=== PATIENT | female | born 1955 | race Caucasian/White ===

== ENCOUNTER → 2017-02-28 | Outpatient (CLI) | payer OTHER ==
--- NOTE | 2017-02-28 15:21 | WWHP ---
[facility] - HISTORY AND PHYSICAL DATE OF DICTATION: 02/28/2017 CHIEF COMPLAINT: The patient is here for her routine gynecologic exam. HPI: This is a 61-year-old G3, P2 0-1-2 with an LMP of 2006. The patient is without gynecologic complaints and denies any postmenopausal bleeding. She is here to establish with this office. It has been about 1 year since her last pelvic exam. PAST MEDICAL HISTORY: Asthma, atrial tachycardia, mitral valve prolapse, Servin's esophagus, hypothyroidism, and chronic Kurtis Bar virus and history of Lyme's disease. MEDICATIONS: 1. Flecainide 100 mg b.i.d. 2. Symbicort 2 puffs b.i.d. 3. Omeprazole 40 mg daily. 4. Paxil 20 mg daily. 5. Tenormin 25 mg daily. 6. Naproxen 500 mg b.i.d. 7. Levothyroxine 100 mcg daily. 8. Singulair 10 mg daily. 9. Crestor 10 mg daily. ALLERGIES: She does avoid stimulants because it makes her heart race. PAST SURGICAL HISTORY: Tonsillectomy with adenoidectomy as a child, colonoscopy in 2014, and this was her third one, cardiac ablations in 1993 and 1994, right knee surgery 2006, breast reduction surgery in 2009. PAST OB HISTORY: Two vaginal deliveries and one voluntary termination of . 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 She has no other history of STDs. SOCIAL HISTORY: She quit smoking in 1998, has about 6 alcohol containing drinks per month and denies drug use. 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 She is . FAMILY HISTORY: Father had bladder and oral cancer. Mother had breast cancer. Also, she has aunts and cousins and a grandmother who had breast cancer. She has a grandmother who had diabetes. REVIEW OF SYSTEMS: She has lost about 12 pounds with diet. She denies respiratory or cardiac problems. GI: Some heartburn which she relates to her esophageal problems. PHYSICAL EXAM: Blood pressure 127/61, height 5 feet 7 inches, weight 198 pounds. Temperature 97.9, pulse 68. This is a well-developed, well-nourished, white female, who is alert and oriented x3, in no acute distress. HEENT is within normal limits. NECK: Supple without mass or thyromegaly. Chest and lungs: Clear to auscultation. HEART: Regular rate and rhythm. Breasts are without mass or discharge and are consistent with previous breast reduction surgery. Axillary exam is negative for adenopathy. Back negative for CVA tenderness. ABDOMEN: Soft, nontender, without palpable masses. Pelvic exam: External genitalia reveals mild atrophy without lesions. Cervix and vagina reveals mild atrophy without lesions. There is no evidence of prolapse. The uterus is mid position nongravid size and nontender. There are no palpable adnexal masses or tenderness. Rectovaginal exam is negative for mass or tenderness and is negative for occult blood. Extremities nontender. IMPRESSION: 61-year-old menopausal female with normal gynecologic exam. PLAN: 1. Pap smear was performed. 2. Self-breast examination was discussed. 3. Mammogram will be due after 04/04/2017 and an order slip was given to the patient for this. 4. Osteoporosis prevention was discussed. 5. She will return in 1 year. MMODL / IJN: [id number] /
== END ==
LOC: WWCWWP 12:34
PROVIDERS: ATTEND Obstetrics & Gynecology
DX: Z01.419 Encounter for gynecological examination (general) (routine) without abnormal findings (principal)

== ENCOUNTER → 2017-04-10 | Outpatient (CLI) | payer BC, OTHER ==
--- NOTE | 2017-04-11 11:05 | MM ---
Reason for exam: screening (asymptomatic). Last mammogram was performed 1 year ago. History: Patient is postmenopausal. Family history of breast cancer in maternal aunt, premenopausal breast cancer in mother at age 50, and breast cancer in maternal grandmother at age 70. September 2009. Took hormonal contraceptives for 12 years beginning at age 14. Took estrogen for 6 months beginning at age 39. Physical Findings: A clinical breast exam by your physician is recommended on an annual basis and results should be correlated with mammographic findings. MG Screening Mammo w CAD Bilateral CC and MLO view(s) were taken. Prior study comparison: April 04, 2016, bilateral MG screening mammo w CAD. April 03, 2015, bilateral MG screening mammo w CAD. There are scattered fibroglandular densities. Stable benign calcifications. There is no discrete abnormality. No significant changes when compared with prior studies. ASSESSMENT: Benign, BI-RAD 2 RECOMMENDATION: Routine screening mammogram of both breasts in 1 year.
== END | disposition home or self-care (01) ==
LOC: RADMAMWWP 11:10
PROVIDERS: ATTEND Obstetrics & Gynecology
DX: Z12.31 Encounter for screening mammogram for malignant neoplasm of breast (principal); Z98.890 Other specified postprocedural states

== ENCOUNTER 2017-10-18 09:31 | Day surgery (SDC) | payer OTHER ==
[2017-10-17 12:15] VITALS: BMI 31.3
[~2017-10-18 09:31] MED LIST: LACTATED RINGERS 1,000 ML IV SCH; LIDOCAINE 1% 20 ML VIAL (10MG/ML) FOR IV START INTRADERMA PRN
[2017-10-18] MEDS ORDERED: LACTATED RINGERS 1,000 ML IV ONE (10:01)
[2017-10-18 10:20] VITALS: RESP 18; TEMP 98.1
[2017-10-18] MEDS ORDERED: LIDOCAINE 1% INJ 10MG/ML (20 ML MDV) ONE (10:43)
[2017-10-18] MEDS ORDERED: PROPOFOL 10 MG/ML 20 ML VIAL IV ONE (10:43)
--- NOTE | 2017-10-18 10:51 | P.PCN ---
Date of Procedure: 10/18/17 Procedure(s) Performed: BRIEF HISTORY: Patient is a 62-year-old, pleasant, male, scheduled for an upper endoscopy as a part of surveillance of long-standing history of gastroesophageal reflux disease and Servin's esophagus.. PROCEDURE PERFORMED: Esophagogastroduodenoscopy with biopsy. PREOPERATIVE DIAGNOSIS: Long-standing history of GERD and Servin's esophagus. IV sedation per anesthesia. PROCEDURE: After informed consent was obtained, the patient was brought into the endoscopy unit. IV sedation was administered by Anesthesia under continuous monitoring. Initially the Olympus GIF-140 video endoscope was inserted into the mouth. Esophagus intubated without any difficulty. It was gradually advanced into the stomach and duodenum and carefully examined. The bulb and the second part of the duodenum appeared normal. The scope at this time was withdrawn to the stomach, adequately insufflated with air, and upon careful examination, mucosa of the antrum, body, cardia and the fundus appeared normal. Multiple small gastric polyps identified in the body the stomach which were biopsied. The scope was then withdrawn into the esophagus. The GE junction was located at 38 cm from the incisors. Small hiatal hernia noted. There was a 3 mm island of Servin's appearing mucosa just proximal to the GE junction and this was biopsied. The esophagus appeared normal. There were no erosions or ulcerations seen and the patient tolerated the procedure well. IMPRESSION: 1. Small gastric polyps. 2. Short segment Servin's esophagus and a small hiatal hernia. RECOMMENDATIONS: The findings of this examination were discussed with the patient as well as her family. She was advised to follow with the biopsy results and have a repeat upper endoscopy in 3 years. She will continue with Nexium 40 mg daily and follow antireflux measures
[2017-10-18 11:15] VITALS: BP 128/75; PULSE 67
== END 2017-10-18 11:46 | disposition home or self-care (01) ==
LOC: ORWHC2ENDO 09:31
PROVIDERS: ATTEND Internal Medicine Gastroenterology
DX: K31.7 Polyp of stomach and duodenum (principal); K21.0 Gastro-esophageal reflux disease with esophagitis; K22.70 Barrett's esophagus without dysplasia; K44.9 Diaphragmatic hernia without obstruction or gangrene; J45.909 Unspecified asthma, uncomplicated; Z87.891 Personal history of nicotine dependence; Z88.8 Allergy status to other drugs, medicaments and biological substances; Z79.82 Long term (current) use of aspirin; Z79.899 Other long term (current) drug therapy
CPT/HCPCS: 88305; 43239; J2001; J2704

== ENCOUNTER 2017-12-27 10:58 | Day surgery (SDC) | payer OTHER ==
[2017-12-22 16:38] VITALS: BMI 31.3
[2017-12-27 11:32] VITALS: TEMP 97.8
[2017-12-27] MEDS ORDERED: LIDOCAINE 1% INJ 10MG/ML (20 ML MDV) ONE (12:44)
[2017-12-27] MEDS ORDERED: PROPOFOL 10 MG/ML 20 ML VIAL IV ONE (12:44)
--- NOTE | 2017-12-27 12:59 | P.PCN ---
Date of Procedure: 12/27/17 Procedure(s) Performed: BRIEF HISTORY: Patient is a 62-year-old pleasant white female scheduled for an elective colonoscopy as a part of evaluation of positive stool for cologuard. PROCEDURE PERFORMED: Colonoscopy. PREOPERATIVE DIAGNOSIS: Positive stool for cologuard. IV sedation per Anesthesia. PROCEDURE: After informed consent was obtained, the patient, was brought into the endoscopy unit. IV sedation was administered by Anesthesia under continuous monitoring. Digital rectal examination was normal. Initially the Olympus CF- 160 flexible video colonoscope was then inserted in the rectum, gradually advanced into the cecum without any difficulty. Careful examination was performed as the scope was gradually being withdrawn. Ileocecal valve and the appendiceal orifice were visualized and appeared normal. Prep was excellent. Mucosa of the cecum, ascending colon, transverse colon, descending colon, sigmoid colon, and rectum appeared normal. Retroflexion was performed in the rectum and no lesions were seen. The patient tolerated the procedure well. IMPRESSION: Normal-appearing colon from rectum to cecum with no evidence of colorectal neoplasia. RECOMMENDATIONS: Findings of this examination were discussed with the patient as well as a family. She was advised to have a repeat colonoscopy in 10 years.
[2017-12-27 13:02] VITALS: PULSE 80
[2017-12-27 13:18] VITALS: BP 163/70; RESP 18
== END 2017-12-27 13:35 | disposition home or self-care (01) ==
LOC: ORWHC2ENDO 10:58
PROVIDERS: ATTEND Internal Medicine Gastroenterology
DX: Z12.11 Encounter for screening for malignant neoplasm of colon (principal); I10 Essential (primary) hypertension; E78.5 Hyperlipidemia, unspecified; J45.909 Unspecified asthma, uncomplicated; K21.9 Gastro-esophageal reflux disease without esophagitis; I47.1 Supraventricular tachycardia; Z88.8 Allergy status to other drugs, medicaments and biological substances; Z79.899 Other long term (current) drug therapy
CPT/HCPCS: 45378; J2001; J2704

== ENCOUNTER → 2018-04-11 | Outpatient (CLI) | payer OTHER ==
[2018-04-11 11:46] VITALS: BP 144/65; PULSE 79; TEMP 96.3; BMI 32.4
--- NOTE | 2018-04-11 12:37 | P.HPOB ---
History of Present Illness H&P Date: 04/11/18 Chief Complaint: The patient is here for her routine gynecologic exam and mammogram. This is a 62-year-old with an LMP of 2006. The patient is without gynecologic complaints and denies any postmenopausal bleeding. Review of Systems The patient has gained 9 pounds over the last year. She denies respiratory, cardiac, or G.I. problems. Past Medical History Past Medical History: Asthma, GERD/Reflux, Hearing Disorder / Deafness, Hyperlipidemia, Osteoarthritis (OA), Skin Disorder, Thyroid Disorder Additional Past Medical History / Comment(s): hx of mycoplasma pneumonie., atrial tachycardia, lymes disease diagnosed december 2012 (bit december 2011), degenerative disk disease, cameron's esphagus, hx of Kurtis Heard, mitral valve prolapse, back & right hip pain (received physical therapy for her hip pain)., hx polyps, stool tested positive for blood. , Deaf right ear. 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 History of Any Multi-Drug Resistant Organisms: None Reported Past Surgical History: Breast Surgery, Cardiac Ablation, Heart Catheterization, Orthopedic Surgery, Tonsillectomy, Tubal Ligation Additional Past Surgical History / Comment(s): breast reduction, D&C, EGD, colonosopy 2018 (2nd), rt knee surgery. Past Anesthesia/Blood Transfusion Reactions: Motion Sickness Additional Past Anesthesia/Blood Transfusion Reaction / Comment(s): has needed xopenex treatment after surgery in the past. Past Psychological History: Anxiety Additional Psychological History / Comment(s): PANIC ATTACK Smoking Status: Former smoker (Quit 1998) Past Alcohol Use History: Occasional (4 per month) Additional Past Alcohol Use History / Comment(s): STARTED SMOKING AT AGE 17 QUIT MAR 1999 SMOKED 1 1/2PPD Past Drug Use History: None Reported Additional History: She is . 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 - Past Family History Father Family Medical History: Cancer (Bladder and oral cancer.) Mother Family Medical History: Cancer (Breast cancer) Additional Family Medical History / Comment(s): She also has aunts, cousins and a grandmother had breast cancer. Medications and Allergies Home Medications Medication Instructions Recorded Confirmed Type ALPRAZolam [Xanax] 1.5 - 2 mg PO HS 10/14/14 04/11/18 History Aspirin 81 mg PO DAILY 10/14/14 04/11/18 History Atenolol [Tenormin] 25 mg PO HS 10/14/14 04/11/18 History Esomeprazole Magnesium [NexIUM] 40 mg PO DAILY 10/14/14 04/11/18 History Flecainide [Tambocor] 50 mg PO Q12HR 10/14/14 04/11/18 History Glucosamine/Chondr Liu A Sod [Osteo 1 each PO BID 10/14/14 04/11/18 History Bi-Flex Caplet] Levothyroxine Sodium [Synthroid] 100 mcg PO DAILY 10/14/14 04/11/18 History Montelukast [Singulair] 10 mg PO DAILY 10/14/14 04/11/18 History Multivitamins, Thera [Theragran] 1 each PO DAILY 10/14/14 04/11/18 History Naproxen 500 mg PO BID 10/14/14 04/11/18 History PARoxetine HCL [Paxil] 20 mg PO DAILY 10/14/14 04/11/18 History Vitamin B Complex 1 each PO DAILY 10/14/14 04/11/18 History Budesonide-Formot 160-4.5 Mcg 2 puff INHALATION BID 10/17/17 04/11/18 History [Symbicort 160-4.5 Mcg Inhaler] Cyanocobalamin (Vitamin B-12) 1,000 mcg PO DAILY 10/17/17 04/11/18 History [Vitamin B-12] Levalbuterol HCl [Xopenex] 1.25 mg INHALATION TID PRN 10/17/17 04/11/18 History Levalbuterol Hfa Inhaler [Xopenex 2 puff INHALATION Q4H PRN 10/17/17 04/11/18 History Hfa Inhaler] Rosuvastatin Calcium [Crestor] 20 mg PO DAILY 10/17/17 04/11/18 History Chaparal Supplement 1,000 mg PO HS 12/22/17 04/11/18 History Monolaurin Supplement 1,200 mg PO DAILY 12/22/17 04/11/18 History Triamcinolone 0.1% Cream [Kenalog 1 applicatio TOPICAL BID PRN 12/22/17 History 0.1% Cream] Allergies Allergy/AdvReac Type Severity Reaction Status Date / Time albuterol AdvReac Rapid Verified 04/11/18 11:31 Heart Rate stimulant medications Allergy Rapid Uncoded 04/11/18 11:31 Heart Rate Exam Vital Signs Temp Pulse BP 04/11/18 11:41 96.3 F L 79 144/65 Intake and Output 04/10/18 04/11/18 04/11/18 22:59 06:59 14:59 Other: Weight 93.894 kg Height 5'7", weight 207 pounds, BMI 32.4. This is a well-developed well-nourished white female who is alert and oriented times 3 in no acute distress. HEENT: Within normal limits. NECK: Supple without mass or thyromegaly. CHEST AND LUNGS: Clear to auscultation. HEART: Regular rate and rhythm. BREASTS: Are without mass or discharge. AXILLARY EXAM: Negative for adenopathy. BACK: Negative for CVA tenderness. ABDOMEN: Soft, nontender, without palpable masses. PELVIC EXAM: Normal external genitalia with mild atrophy. Cervix and vagina appear normal with mild atrophy. There is no unusual discharge. There is no evidence of prolapse. The uterus is midposition, nongravid size and nontender. There are no palpable adnexal masses or tenderness. RECTAL EXAM: rectovaginal exam is negative for mass or tenderness and is negative for occult blood. EXTREMITIES: Nontender. IMPRESSION: 1. 62-year-old menopausal female with normal gynecologic exam. PLAN: 1. Pap smear was deferred since she had a normal one last year. 2. Self breast awareness was discussed with the patient. 3. Screening mammogram will be done today. 4. Osteoporosis prevention was discussed. I have stressed the importance of adequate calcium, vitamin D and regular exercise. Recommended amounts of calcium and vitamin D were also discussed. We will plan on repeating bone density testing again in approximately 2019. 5. She will return in one year.
--- NOTE | 2018-04-13 12:32 | MM ---
Reason for exam: screening (asymptomatic). Last mammogram was performed 1 year ago. History: Patient is postmenopausal. Family history of breast cancer in maternal aunt, premenopausal breast cancer in mother at age 50, breast cancer in maternal grandmother at age 70, and breast cancer in cousin. September 2009. Took hormonal contraceptives for 12 years beginning at age 14. Took estrogen for 6 months beginning at age 39. Physical Findings: A clinical breast exam by your physician is recommended on an annual basis and results should be correlated with mammographic findings. MG Screening Mammo w CAD Bilateral CC and MLO view(s) were taken. Prior study comparison: April 10, 2017, bilateral MG screening mammo w CAD. April 04, 2016, bilateral MG screening mammo w CAD. There are scattered fibroglandular densities. Benign appearing bilateral calcifications. No suspicious abnormality. No significant changes when compared with prior studies. ASSESSMENT: Benign, BI-RAD 2 RECOMMENDATION: Routine screening mammogram of both breasts in 1 year.
== END ==
LOC: WWCWWP 11:07
PROVIDERS: ATTEND Obstetrics & Gynecology
DX: Z12.31 Encounter for screening mammogram for malignant neoplasm of breast (principal)
CPT/HCPCS: 77067

== ENCOUNTER → 2018-08-13 | Outpatient (CLI) | payer OTHER ==
--- NOTE | 2018-08-14 07:45 | XR ---
EXAMINATION TYPE: XR chest 2V DATE OF EXAM: 08/13/2018 COMPARISON: 05/06/2016 TECHNIQUE: PA and lateral views submitted. HISTORY: Pneumonia FINDINGS: There are subsegmental changes in the right perihilar region. No pleural effusion or pneumothorax. He art size normal. No overt failure. IMPRESSION: 1. Right lower lobe subsegmental atelectasis or infiltrate correlate clinically.
== END | disposition home or self-care (01) ==
LOC: RADXRMAIN 17:28
PROVIDERS: ATTEND Internal Medicine Infectious Disease
DX: J18.9 Pneumonia, unspecified organism (principal)
CPT/HCPCS: 71046

== ENCOUNTER 2019-04-10 14:36 | Emergency (ER) | payer OTHER ==
[2019-04-10 14:41] VITALS: TEMP 98.4
[2019-04-10] MEDS ORDERED: SODIUM CHLORIDE 0.9% 1,000 ML IV STA (15:04)
[2019-04-10] MEDS ORDERED: KETOROLAC 30 MG/ML 1 ML VIAL IVP STA (15:04)
[2019-04-10] MEDS ORDERED: ONDANSETRON 4 MG/2 ML VIAL IVP STA (15:04)
--- NOTE | 2019-04-10 15:04 | ED ---
General Adult HPI - General Chief complaint: Upper Respiratory Infection Stated complaint: Coughing up blood Time Seen by Provider: 04/10/19 14:44 Source: patient Mode of arrival: ambulatory Limitations: no limitations - History of Present Illness Initial comments: Dictation was produced using apomio dictation software. please excuse any grammatical, word or spelling errors. Chief Complaint: 63-year-old febrile presents with cough and generalized weakness. History of Present Illness: 63-year-old female past medical history of asthma presents with cough and generalized weakness. Patient states she's been around her grandchildren who have also been sick with URI type symptoms. Patient states she's been feeling generally weak. Denies any focal neurologic deficits. Patient states she's been coughing up mucus and sometimes her strict return blood and sometimes they're green. She also feels mildly short of breath. She has been having some chills at home. The ROS documented in this emergency department record has been reviewed and confirmed by me. Those systems with pertinent positive or negative responses have been documented in the HPI. All other systems are other negative and/or noncontributory. PHYSICAL EXAM: General Impression: Alert and oriented x3, not in acute distress HEENT: Normocephalic atraumatic, extra-ocular movements intact, pupils equal and reactive to light bilaterally, mucous membranes moist. Cardiovascular: Heart regular rate and rhythm, S1&S2 audible, no murmurs, rubs or gallops Chest: Lungs clear to auscultation bilaterally, no rhonchi, no wheeze, no rales Abdomen: Bowel sounds present, abdomen soft, non-tender, non-distended, no organomegaly Musculoskeletal: Pulses present and equal in all extremities, no peripheral edema Motor: no focal deficits noted Neurological: CN II-XII grossly intact, no focal motor or sensory deficits noted Skin: Intact with no visualized rashes Psych: Normal affect and mood ED course: 63-year-old female presents with URI-type symptoms. Signs upon arrival shows 94% on room air, rest of vital signs within acceptable limits. Laboratory evaluation obtained. Leukocytosis of 13.5 likely secondary to stress. Metabolic panel shows mild acidosis and 21. Rest of labs unremarkable. Chest x-ray is nonacute. Given patient's degree of symptoms and leukocytosis believe she would benefit from a trial of antibiotics. Patient given Zofran per she is 1 L fluids, Toradol. She is given a be given a gram of Rocephin prior to discharge. Patient given prescription for doxycycline to take. Advised to follow-up with primary care physician upon discharge. EKG interpretation: Ventricular rate 69, sinus rhythm,. Interval to 22, QS 106, QTC 4:30. No NH prolongation, no QTC prolongation, no ST or T-wave changes noted. No old EKG for comparison. Overall, this EKG is unremarkable - Related Data Home Medications Medication Instructions Recorded Confirmed ALPRAZolam [Xanax] 1.5 - 2 mg PO HS 10/14/14 04/11/18 Aspirin 81 mg PO DAILY 10/14/14 04/11/18 Atenolol [Tenormin] 25 mg PO HS 10/14/14 04/11/18 Esomeprazole Magnesium [NexIUM] 40 mg PO DAILY 10/14/14 04/11/18 Flecainide [Tambocor] 50 mg PO Q12HR 10/14/14 04/11/18 Glucosamine/Chondr Liu A Sod [Osteo 1 each PO BID 10/14/14 04/11/18 Bi-Flex Caplet] Levothyroxine Sodium [Synthroid] 100 mcg PO DAILY 10/14/14 04/11/18 Montelukast [Singulair] 10 mg PO DAILY 10/14/14 04/11/18 Multivitamins, Thera [Theragran] 1 each PO DAILY 10/14/14 04/11/18 Naproxen 500 mg PO BID 10/14/14 04/11/18 PARoxetine HCL [Paxil] 20 mg PO DAILY 10/14/14 04/11/18 Vitamin B Complex 1 each PO DAILY 10/14/14 04/11/18 Budesonide-Formot 160-4.5 Mcg 2 puff INHALATION BID 10/17/17 04/11/18 [Symbicort 160-4.5 Mcg Inhaler] Cyanocobalamin (Vitamin B-12) 1,000 mcg PO DAILY 10/17/17 04/11/18 [Vitamin B-12] Levalbuterol HCl [Xopenex] 1.25 mg INHALATION TID PRN 10/17/17 04/11/18 Levalbuterol Hfa Inhaler [Xopenex 2 puff INHALATION Q4H PRN 10/17/17 04/11/18 Hfa Inhaler] Rosuvastatin Calcium [Crestor] 20 mg PO DAILY 10/17/17 04/11/18 Chaparal Supplement 1,000 mg PO HS 12/22/17 04/11/18 Monolaurin Supplement 1,200 mg PO DAILY 12/22/17 04/11/18 Triamcinolone 0.1% Cream [Kenalog 1 applicatio TOPICAL BID PRN 12/22/17 04/11/18 0.1% Cream] Previous Rx's Medication Instructions Recorded Doxycycline [Vibramycin] 100 mg PO BID 7 Days #14 capsule 04/10/19 Ondansetron Odt [Zofran Odt] 4 mg PO Q8HR PRN #12 tab 04/10/19 Allergies Allergy/AdvReac Type Severity Reaction Status Date / Time albuterol AdvReac Rapid Verified 04/11/18 11:31 Heart Rate stimulant medications Allergy Rapid Uncoded 04/11/18 11:31 Heart Rate Review of Systems ROS Statement: Those systems with pertinent positive or pertinent negative responses have been documented in the HPI. ROS Other: All systems not noted in ROS Statement are negative. Past Medical History Past Medical History: Asthma, GERD/Reflux, Hearing Disorder / Deafness, Hyper lipidemia, Osteoarthritis (OA), Skin Disorder, Thyroid Disorder Additional Past Medical History / Comment(s): hx of mycoplasma pneumonie.,atrial tachycardia, lymes disease diagnosed december 2012 (bit december 2011), degenerative disk disease, cameron's esphagus, hx of Kurtis Heard, mitral valve prolapse, back & right hip pain (received physical therapy for her hip pain)., hx polyps, stool tested positive for blood. , Deaf right ear. 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 History of Any Multi-Drug Resistant Organisms: None Reported Past Surgical History: Breast Surgery, Cardiac Ablation, Heart Catheterization, Orthopedic Surgery, Tonsillectomy, Tubal Ligation Additional Past Surgical History / Comment(s): breast reduction, D&C, EGD, colonosopy 2018 (2nd), rt knee surgery. Past Anesthesia/Blood Transfusion Reactions: Motion Sickness Additional Past Anesthesia/Blood Transfusion Reaction / Comment(s): has needed xopenex treatment after surgery in the past. Past Psychological History: Anxiety Smoking Status: Former smoker Past Alcohol Use History: Occasional Past Drug Use History: None Reported - Past Family History Mother Family Medical History: Cancer (Breast cancer) Additional Family Medical History / Comment(s): She also has aunts, cousins and a grandmother had breast cancer. Father Family Medical History: Cancer (Bladder and oral cancer.) General Exam Limitations: no limitations Course Vital Signs 04/10/19 14:37 Temperature 98.4 F Pulse Rate 77 Respiratory 18 Rate Blood Pressure 128/64 O2 Sat by Pulse 94 L Oximetry Medical Decision Making - Lab Data Result diagrams: 04/10/19 13:34 04/10/19 13:34 Lab Results 04/10/19 04/10/19 Range/Units 13:34 13:34 WBC 17.5 H (3.8-10.6) k/uL RBC 3.71 L (3.80-5.40) m/uL Hgb 11.7 (11.4-16.0) gm/dL Hct 34.1 (34.0-46.0) % MCV 91.9 (80.0-100.0) fL MCH 31.4 (25.0-35.0) pg MCHC 34.2 (31.0-37.0) g/dL RDW 11.8 (11.5-15.5) % Plt Count 258 (150-450) k/uL Neutrophils % 91 % Lymphocytes % 6 % Monocytes % 3 % Eosinophils % 0 % Basophils % 0 % Neutrophils # 15.9 H (1.3-7.7) k/uL Lymphocytes # 1.0 (1.0-4.8) k/uL Monocytes # 0.5 (0-1.0) k/uL Eosinophils # 0.0 (0-0.7) k/uL Basophils # 0.0 (0-0.2) k/uL Sodium 139 (137-145) mmol/L Potassium 4.2 (3.5-5.1) mmol/L Chloride 108 H (98-107) mmol/L Carbon Dioxide 21 L (22-30) mmol/L Anion Gap 10 mmol/L BUN 19 H (7-17) mg/dL Creatinine 0.75 (0.52-1.04) mg/dL Est GFR (CKD-EPI)AfAm >90 (>60 ml/min/1.73 sqM) Est GFR (CKD-EPI)NonAf 86 (>60 ml/min/1.73 sqM) Glucose 138 H (74-99) mg/dL Calcium 9.5 (8.4-10.2) mg/dL Magnesium 1.9 (1.6-2.3) mg/dL Disposition Clinical Impression: Pneumonia Disposition: HOME SELF-CARE Condition: Good Instructions (If sedation given, give patient instructions): Upper Respiratory Infection (ED) Prescriptions: Doxycycline [Vibramycin] 100 mg PO BID 7 Days #14 capsule Ondansetron Odt [Zofran Odt] 4 mg PO Q8HR PRN #12 tab PRN Reason: Nausea Is patient prescribed a controlled substance at d/c from ED?: No Referrals: Cony Lau MD [Primary Care Provider] - 1-2 days Time of Disposition: 16:18
--- NOTE | 2019-04-10 15:23 | XR ---
EXAMINATION TYPE: XR chest 2V DATE OF EXAM: 04/10/2019 COMPARISON: Chest x-ray August 13, 2018. HISTORY: Productive cough for 3 days. Hemoptysis. TECHNIQUE: Frontal and lateral views of the chest are obtained. FINDINGS: There is some chronic parenchymal change without suspicious new focal air space opacity, p leural effusion, or pneumothorax seen. The cardiac silhouette size is mildly enlarged. The osseous structures are intact. IMPRESSION: Chronic changes and mild cardiomegaly without acute pulmonary process.
[2019-04-10 15:43] LABS: Basophils % (A) 0 %; Eosinophils % (A) 0 %; HCT 34.1 % (34.0-46.0); HGB 11.7 gm/dL (11.4-16.0); Lymphocytes % (A) 6 %; MCH 31.4 pg (25.0-35.0); MCHC 34.2 g/dL (31.0-37.0); MCV 91.9 fL (80.0-100.0); Mean Platelet Volume 6.2; Monocytes # (A) 0.5 k/uL (0-1.0); Monocytes % (A) 3 %; Neutrophils # (A) 15.9 k/uL (1.3-7.7); Neutrophils % (A) 91 %; Platelet Count 258 k/uL (150-450); RBC 3.71 m/uL (3.80-5.40); RDW 11.8 % (11.5-15.5); WBC 17.5 k/uL (3.8-10.6)
[2019-04-10 15:53] LABS: African American GFR (CKD) >90 (>60 ml/min/1.73 sqM); Anion Gap 10 mmol/L; Blood Urea Nitrogen 19 mg/dL (7-17); Calcium 9.5 mg/dL (8.4-10.2); Carbon Dioxide 21 mmol/L (22-30); Chloride 108 mmol/L (98-107); Glucose 138 mg/dL (74-99); Magnesium 1.9 mg/dL (1.6-2.3); Non-African American GFR(CKD) 86 (>60 ml/min/1.73 sqM); Potassium 4.2 mmol/L (3.5-5.1); Sodium 139 mmol/L (137-145)
[2019-04-10] MEDS ORDERED: cefTRIAXone IN SWFI 1,000 MG/10 ML SYRINGE IVP STA (16:15)
[2019-04-10 17:10] VITALS: BP 136/87; PULSE 89; RESP 20
== END 2019-04-10 16:30 | disposition home or self-care (01) ==
LOC: EC 14:36
DX: J18.9 Pneumonia, unspecified organism (principal); E87.2 Acidosis; J45.909 Unspecified asthma, uncomplicated; K21.9 Gastro-esophageal reflux disease without esophagitis; H91.91 Unspecified hearing loss, right ear; E78.5 Hyperlipidemia, unspecified; M19.90 Unspecified osteoarthritis, unspecified site; E07.9 Disorder of thyroid, unspecified; F41.9 Anxiety disorder, unspecified; Z87.891 Personal history of nicotine dependence; Z88.8 Allergy status to other drugs, medicaments and biological substances; Z79.1 Long term (current) use of non-steroidal anti-inflammatories (NSAID); Z79.51 Long term (current) use of inhaled steroids; Z79.82 Long term (current) use of aspirin; Z79.890 Hormone replacement therapy; Z79.899 Other long term (current) drug therapy
CPT/HCPCS: 36415; 93005; 80048; 83735; 85025; 71046; 99285; 96374; 96375 ×2; 96361; J2405; J0696; J1885

== ENCOUNTER → 2019-05-21 | Outpatient (CLI) | payer OTHER ==
[2019-05-21 11:28] VITALS: BP 137/75; PULSE 71; RESP 18; TEMP 97.5
--- NOTE | 2019-05-21 12:33 | P.HPOB ---
History of Present Illness H&P Date: 05/21/19 Chief Complaint: The patient is here for her routine gynecologic exam and ma mmogram. This is a 63-year-old 012 with an LMP of 2006. Patient is without gynecologic complaints and denies any postmenopausal bleeding. Review of Systems The patient has lost 14 pounds over the last year. She states she has been trying to lose weight by eating healthier. She denies respiratory, cardiac, or G.I. problems. 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 , Deaf right ear. 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 History of Any Multi-Drug Resistant Organisms: None Reported Past Surgical History: Breast Surgery, Cardiac Ablation, Heart Catheterization, Orthopedic Surgery, Tonsillectomy, Tubal Ligation Additional Past Surgical History / Comment(s): breast reduction, D&C, EGD, colonosopy 2018 (2nd,next after 5yr)), rt knee surgery. Past Anesthesia/Blood Transfusion Reactions: Motion Sickness Additional Past Anesthesia/Blood Transfusion Reaction / Comment(s): has needed xopenex treatment after surgery in the past. Past Psychological History: Anxiety Additional Psychological History / Comment(s): PANIC ATTACK Smoking Status: Former smoker Past Alcohol Use History: Occasional (2/ week) Additional Past Alcohol Use History / Comment(s): STARTED SMOKING AT AGE 17 QUIT MAR 1999 SMOKED 1 1/2PPD Past Drug Use History: None Reported Additional History: The patient's became a in 2019 after 20 years of marriage. She is not seeing anybody at this time. 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 - Past Family History Mother Family Medical History: Cancer Additional Family Medical History / Comment(s): Breast cancer. She also has aunts, cousins and a grandmother had breast cancer. Father Family Medical History: Cancer Additional Family Medical History / Comment(s): Bladder and oral cancer. Medications and Allergies Home Medications Medication Instructions Recorded Confirmed Type ALPRAZolam [Xanax] 1.5 - 2 mg PO HS 10/14/14 05/21/19 History Aspirin 81 mg PO DAILY 10/14/14 05/21/19 History Atenolol [Tenormin] 25 mg PO HS 10/14/14 05/21/19 History Flecainide [Tambocor] 50 mg PO Q12HR 10/14/14 05/21/19 History Glucosamine/Chondr Liu A Sod [Osteo 1 each PO BID 10/14/14 05/21/19 History Bi-Flex Caplet] Levothyroxine Sodium [Synthroid] 100 mcg PO DAILY 10/14/14 05/21/19 History Montelukast [Singulair] 10 mg PO DAILY 10/14/14 05/21/19 History Multivitamins, Thera [Theragran] 1 each PO DAILY 10/14/14 05/21/19 History Naproxen 500 mg PO BID PRN 10/14/14 05/21/19 History PARoxetine HCL [Paxil] 40 mg PO DAILY 10/14/14 05/21/19 History Vitamin B Complex 1 each PO DAILY 10/14/14 05/21/19 History Cyanocobalamin (Vitamin B-12) 1,000 mcg PO DAILY 10/17/17 05/21/19 History [Vitamin B-12] Levalbuterol HCl [Xopenex] 1.25 mg INHALATION TID PRN 10/17/17 05/21/19 History Levalbuterol Hfa Inhaler [Xopenex 2 puff INHALATION Q4H PRN 10/17/17 05/21/19 History Hfa Inhaler] Rosuvastatin Calcium [Crestor] 20 mg PO DAILY 10/17/17 05/21/19 History Chaparal Supplement 1,000 mg PO HS 12/22/17 05/21/19 History Monolaurin Supplement 1,200 mg PO DAILY 12/22/17 05/21/19 History Triamcinolone 0.1% Cream [Kenalog 1 applicatio TOPICAL BID PRN 12/22/17 05/21/19 History 0.1% Cream] Fluticasone/Salmeterol 1 puff INHALATION DAILY 05/21/19 05/21/19 History [Fluticasone-Salmeterol 232-14] Naproxen 500 mg PO BID 05/21/19 05/21/19 History Allergies Allergy/AdvReac Type Severity Reaction Status Date / Time albuterol AdvReac Rapid Verified 05/21/19 11:29 Heart Rate azithromycin AdvReac Unknown Unverified 05/21/19 11:29 [From Zithromax Z-Jair] stimulant medications Allergy Rapid Uncoded 05/21/19 11:29 Heart Rate Exam Vital Signs Temp Pulse Resp BP Pulse Ox 05/21/19 11:23 97.5 F L 71 18 137/75 95 Intake and Output 05/20/19 05/21/19 05/21/19 22:59 06:59 14:59 Other: Weight 87.543 kg Height 5 feet 7 inches, weight 193 pounds, BMI 30.2. This is a well-developed well-nourished white female who is alert and oriented times 3 in no acute distress. HEENT: Within normal limits. NECK: Supple without mass or thyromegaly. CHEST AND LUNGS: Clear to auscultation. HEART: Regular rate and rhythm. BREASTS: Are without mass or discharge. AXILLARY EXAM: Negative for adenopathy. BACK: Negative for CVA tenderness. ABDOMEN: Soft, nontender, without palpable masses. PELVIC EXAM: Normal external genitalia with mild atrophy. Cervix and vagina appear normal mild atrophy. There is no unusual discharge. There is no evidence of prolapse. The uterus is midposition, nongravid size and nontender. There are no palpable adnexal masses or tenderness. RECTAL EXAM: Rectovaginal exam is negative for mass or tenderness and is negative for occult blood. EXTREMITIES: Nontender. IMPRESSION: 1. 63-year-old menopausal female with normal gynecologic exam. PLAN: 1. Pap smear was performed. 2. Self breast awareness was discussed with the patient. 3. Screening mammogram will be done today. 4. Osteoporosis prevention was discussed. I have stressed the importance of a dequate calcium, vitamin D and regular exercise. Recommended amounts of calcium and vitamin D were also discussed. Bone density testing was recommended since it has been about 6 years. The order slip was given to the patient for this. 5. She was advised to return in one year for her annual well woman exam.
--- NOTE | 2019-05-23 10:26 | MM ---
Reason for exam: screening (asymptomatic). Last mammogram was performed 1 year and 1 month ago. History: Patient is postmenopausal. Family history of breast cancer in maternal aunt, premenopausal breast cancer in mother at age 50, breast cancer in maternal grandmother at age 70, and breast cancer in cousin. September 2009. Took hormonal contraceptives for 12 years beginning at age 14. Took estrogen for 6 months beginning at age 39. Physical Findings: A clinical breast exam by your physician is recommended on an annual basis and results should be correlated with mammographic findings. MG Screening Mammo w CAD Bilateral CC and MLO view(s) were taken. Prior study comparison: April 11, 2018, bilateral MG screening mammo w CAD. April 10, 2017, bilateral MG screening mammo w CAD. There are scattered fibroglandular densities. Focal asymmetry right MLO view, may be summation. This finding is changed when compared with previous exams. ASSESSMENT: Incomplete: need additional imaging evaluation, BI-RAD 0 RECOMMENDATION: Special view mammogram of the right breast. If lesion persists on supplemental views, image directed ultrasound is recommended. [facility] will attempt to contact patient to return for supplemental views and ultrasound if indicated.
== END | disposition home or self-care (01) ==
LOC: WWCWWP 11:15
PROVIDERS: ATTEND Obstetrics & Gynecology
DX: Z12.31 Encounter for screening mammogram for malignant neoplasm of breast (principal)
CPT/HCPCS: 77067

== ENCOUNTER → 2019-06-06 | Outpatient (CLI) | payer OTHER ==
--- NOTE | 2019-06-07 09:24 | MM ---
Reason for exam: additional evaluation requested from abnormal screening. Last mammogram was performed 1 month ago. History: Patient is postmenopausal. Family history of breast cancer in maternal aunt, premenopausal breast cancer in mother at age 50, breast cancer in maternal grandmother at age 70, and breast cancer in cousin. September 2009. Took hormonal contraceptives for 12 years beginning at age 14. Took estrogen for 6 months beginning at age 39. Physical Findings: Nurse did not find any significant physical abnormalities on exam. MG Work Up Mamm w CAD RT LM and spot compression MLO view(s) were taken of the right breast. Prior study comparison: May 21, 2019, bilateral MG screening mammo w CAD. April 11, 2018, bilateral MG screening mammo w CAD. There are scattered fibroglandular densities. There is no discrete abnormality. These results were verbally communicated with the patient and result sheet given to the patient on 06/06/19. ASSESSMENT: Negative, BI-RAD 1 RECOMMENDATION: Return to routine screening mammogram schedule for both breasts.
== END | disposition home or self-care (01) ==
LOC: RADMAMWWP 14:13
PROVIDERS: ATTEND Obstetrics & Gynecology
DX: R92.8 Other abnormal and inconclusive findings on diagnostic imaging of breast (principal)
CPT/HCPCS: 77065

== ENCOUNTER → 2020-05-12 | Outpatient (CLI) | payer OTHER ==
--- NOTE | 2020-05-12 12:53 | CT ---
EXAMINATION TYPE: CT wrist RT wo con DATE OF EXAM: 05/12/2020 COMPARISON: None. HISTORY: Fall, Rt wrist pain, intra-articular fracture right radius, radial styloid fracture. CT DLP: 114.0 mGycm Automated exposure control for dose reduction was used. FINDINGS: There is acute comminuted nondisplaced fracture through the distal radial meta-epiphysis with intra-a rticular extension. No significant step off in the distal radial intra-articular portion. There is minus ulnar variance without fracture. Carpal joint spaces are maintained. No additional fracture is seen. Scapholunate space is maintained. Tiny ossifications near base of first metacarpal are well-circumscribed and could reflect product of old injury. IMPRESSION: As above.
== END | disposition home or self-care (01) ==
LOC: RADCTMAIN 11:16
PROVIDERS: ATTEND Orthopaedic Surgery
DX: S52.571A Other intraarticular fracture of lower end of right radius, initial encounter for closed fracture (principal); M25.831 Other specified joint disorders, right wrist; M89.8X4 Other specified disorders of bone, hand

== ENCOUNTER → 2020-05-26 | Outpatient (CLI) | payer OTHER ==
[2020-05-26 15:11] VITALS: BP 142/76; PULSE 84; RESP 18; TEMP 98.2
--- NOTE | 2020-05-26 16:10 | P.HPOB ---
History of Present Illness H&P Date: 05/26/20 Chief Complaint: The patient is here for her routine gynecologic exam and ma mmogram. This is a 64-year-old with an LMP of 2007. The patient is without gynecologic complaints. She has been dating somebody for 7 months and they have been sexually active without sexual intercourse because of his erectile dysfunction. She is very happy with her new relationship. Review of Systems The patient's weight has been stable over the last year. She denies respiratory, cardiac, or G.I. problems. 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 , Deaf right ear. 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 History of Any Multi-Drug Resistant Organisms: None Reported Past Surgical History: Breast Surgery, Cardiac Ablation, Heart Catheterization, Orthopedic Surgery, Tonsillectomy, Tubal Ligation Additional Past Surgical History / Comment(s): breast reduction, D&C, EGD, colonosopy 2018 (2nd,next after 5yr)), rt knee surgery. Past Anesthesia/Blood Transfusion Reactions: Motion Sickness Additional Past Anesthesia/Blood Transfusion Reaction / Comment(s): has needed xopenex treatment after surgery in the past. Past Psychological History: Anxiety Additional Psychological History / Comment(s): PANIC ATTACK Smoking Status: Former smoker Past Alcohol Use History: Occasional (1 or 2 per week) Additional Past Alcohol Use History / Comment(s): STARTED SMOKING AT AGE 17 QUIT MAR 1999 SMOKED 1 1/2PPD Past Drug Use History: None Reported Additional History: The patient became a in 2019. She started dating somebody in 2019. They do not live together. 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 - Past Family History Mother Family Medical History: Cancer Additional Family Medical History / Comment(s): Breast cancer. She also has aunts, cousins and a grandmother had breast cancer. Father Family Medical History: Cancer Additional Family Medical History / Comment(s): Bladder and oral cancer. Medications and Allergies Home Medications Medication Instructions Recorded Confirmed Type ALPRAZolam [Xanax] 1.5 - 2 mg PO HS 10/14/14 05/26/20 History Aspirin 81 mg PO DAILY 10/14/14 05/26/20 History Flecainide [Tambocor] 50 mg PO Q12HR 10/14/14 05/26/20 History Glucosamine/Chondr Liu A Sod [Osteo 1 each PO BID 10/14/14 05/26/20 History Bi-Flex Caplet] Levothyroxine Sodium [Synthroid] 100 mcg PO DAILY 10/14/14 05/26/20 History Montelukast [Singulair] 10 mg PO DAILY 10/14/14 05/26/20 History Multivitamins, Thera [Theragran] 1 each PO DAILY 10/14/14 05/26/20 History Naproxen 500 mg PO BID PRN 10/14/14 05/26/20 History Vitamin B Complex 1 each PO DAILY 10/14/14 05/26/20 History atenoloL [Tenormin] 25 mg PO HS 10/14/14 05/26/20 History Cyanocobalamin (Vitamin B-12) 1,000 mcg PO DAILY 10/17/17 05/26/20 History [Vitamin B-12] Levalbuterol HCl [Xopenex] 1.25 mg INHALATION TID PRN 10/17/17 05/26/20 History Levalbuterol Hfa Inhaler [Xopenex 2 puff INHALATION Q4H PRN 10/17/17 05/26/20 History Hfa Inhaler] Rosuvastatin Calcium [Crestor] 20 mg PO DAILY 10/17/17 05/26/20 History Chaparal Supplement 1,000 mg PO HS 12/22/17 05/26/20 History Monolaurin Supplement 1,200 mg PO DAILY 12/22/17 05/26/20 History Triamcinolone 0.1% Cream [Kenalog 1 applicatio TOPICAL BID PRN 12/22/17 05/26/20 History 0.1% Cream] Naproxen 500 mg PO BID 05/21/19 05/26/20 History Budesonide-Formot 160-4.5 Mcg 2 puff INHALATION BID 05/26/20 05/26/20 History [Symbicort 160-4.5 Mcg Inhaler] DULoxetine HCL [Cymbalta] 30 mg PO DAILY 05/26/20 05/26/20 History Omeprazole [PriLOSEC] 40 mg PO DAILY 05/26/20 05/26/20 History Allergies Allergy/AdvReac Type Severity Reaction Status Date / Time albuterol AdvReac Rapid Verified 05/26/20 15:06 Heart Rate azithromycin AdvReac Unknown Unverified 05/26/20 15:06 [From Zithromax Z-Jair] stimulant medications Allergy Rapid Uncoded 05/26/20 15:06 Heart Rate Exam Vital Signs Temp Pulse Resp BP Pulse Ox 05/26/20 15:08 98.2 F 84 18 142/76 96 Intake and Output 05/26/20 05/26/20 05/26/20 06:59 14:59 22:59 Other: Weight 87.543 kg Height 5 feet 6-1/2 inches, weight 193 pounds, BMI 30.7. This is a well-developed well-nourished white female who is alert and oriented times 3 in no acute distress. HEENT: Within normal limits. NECK: Supple without mass or thyromegaly. CHEST AND LUNGS: Clear to auscultation. HEART: Regular rate and rhythm. BREASTS: Are without mass or discharge. AXILLARY EXAM: Negative for adenopathy. BACK: Negative for CVA tenderness. ABDOMEN: Soft, nontender, without palpable masses. PELVIC EXAM: Normal external genitalia with mild atrophy. Cervix and vagina appear normal mild atrophy. There is no unusual discharge. There is no evidence of prolapse. The uterus is midposition, nongravid size and nontender. There are no palpable adnexal masses or tenderness. RECTAL EXAM: Rectovaginal exam is negative for mass or tenderness and is negative for occult blood. EXTREMITIES: Nontender. IMPRESSION: 1. 64-year-old menopausal female with normal gynecologic exam. PLAN: 1. Pap smear was deferred since she had a normal one on 05/21/2019. 2. Self breast awareness was discussed with the patient. 3. Screening mammogram was done today. 4. Osteoporosis prevention was discussed. I have stressed the importance of adequate calcium, vitamin D and regular exercise. Recommended amounts of calcium and vitamin D were also discussed. Bone density testing was done today. 5. She was advised to return in one year for her annual well woman exam.
--- NOTE | 2020-05-26 19:18 | BD ---
EXAMINATION TYPE: Axial Bone Density DATE OF EXAM: 05/26/2020 COMPARISON: 01/03/2014 CLINICAL HISTORY: Postmenopausal screening Height: 5 FT 6 1/2IN Weight: 192 FRAX RISK QUESTIONS: Alcohol (3 or more units per day): NO Family History (Parent hip fracture): NO Glucocorticoids (More than 3mos): NO (Ex: prednisone, prednisolone, methylprednisolone, dexamethasone, and hydrocortisone). History of Fracture in Adulthood: YES Secondary Osteoporosis: 1. Type 1 Diabetes: NO 2. Hyperthyroidism: NO 3. Menopause before 45: NO 4. Malnutrition: NO 5. Chronic liver disease: NO Rheumatoid Arthritis: NO Current Tobacco Use: NO RISK FACTORS HISTORY OF: History of Wrist Fracture: RT WRIST When: 2019 Family History of Osteoporosis: NO Active: YES Diet low in dairy products/other sources of calcium: NO Postmenopausal woman: AGE 54 Take estrogen and/or progesterone medications: NONE Lost more than 2 inches in height since high school: NONE MEDICATIONS: Thyroid Medications: YES Which medication: LEVOTHYROXINE How Long: SINCE 2012 Additional Medications: LEVOTHYROXINE ,FLECAININE, CYMBALTA, ATENOLOL,SINGULAIR,PRILOSEC.NAPROXEN, CR ESTOR, XANAX,CHAPARRAL,MONOLAURIN,SYMBICORT, XOPENEX, Additional History: MITRAL VALVE PROLAPSE EXAM MEASUREMENTS: Bone mineral densitometry was performed using the [employer] System. Bone mineral density as measured about the Lumbar spine is: ----- L1-L4(G/cm2): 1.214 T Score Values are as follows: ----- L2: 1.5 ----- L3: 0.5 ----- L4: -0.9 ----- L1-L4: 0.3 Bone mineral density has: DECREASED -5.0 % since study of: 2013 Bone mineral density about the R hip (g/cm2): 0.911 Bone mineral density about the L hip (g/cm2): 0.908 T Score values are as follows: -----R Neck: -0.9 -----L Neck: -0.9 -----R Total: 0.2 -----L Total: 0.2 Bone mineral density has: DECREASED -7.0 % since study of: 2013 IMPRESSION: Normal (Values between +1 and -1 indicate normal bone mass). Consider repeating this study in 5 year s or sooner if there is some new clinical indication. NOTE: T-SCORE=SD OF THE YOUNG ADULT MEAN.
--- NOTE | 2020-05-28 13:49 | MM ---
Reason for exam: screening (asymptomatic). Last mammogram was performed 1 year ago. History: Patient is postmenopausal. Family history of breast cancer in maternal aunt, premenopausal breast cancer in mother at age 50, breast cancer in maternal grandmother at age 70, and breast cancer in cousin. September 2009. Took hormonal contraceptives for 12 years beginning at age 14. Took estrogen for 6 months beginning at age 39. Physical Findings: A clinical breast exam by your physician is recommended on an annual basis and results should be correlated with mammographic findings. MG Screening Mammo w CAD Bilateral CC and MLO view(s) were taken. Prior study comparison: June 06, 2019, right breast MG work up mamm w CAD RT. May 21, 2019, bilateral MG screening mammo w CAD. There are scattered fibroglandular densities. Benign oil cyst calcifications. No significant changes when compared with prior studies. ASSESSMENT: Benign, BI-RAD 2 RECOMMENDATION: Routine screening mammogram of both breasts in 1 year.
--- NOTE | 2020-06-03 12:17 | P.PN ---
Progress Note - Text Progress Note Date: 06/03/20 OUTPATIENT FOLLOW-UP NOTE TEST(S)/RESULTS: Test results from 05/26/2020 include benign mammogram and normal bone density testing. METHOD OF NOTIFICATION: The patient was notified by phone. PATIENT COMMENTS: The patient states she has been working hard at trying to get adequate calcium, vitamin D and regular exercise. DIAGNOSIS: Mammogram and normal bone density testing. DISCUSSION: There was a decrease in the bone density testing from her 2014 bone density test. We will continue to go without prescription medication. We will repeat the bone density test in approximately 5 years. I have answered her questions regarding calcium supplements and their content. PLAN: She was advised to return in one year for her annual well woman exam. As above.
== END | disposition home or self-care (01) ==
LOC: WWCWWP 12:13
PROVIDERS: ATTEND Obstetrics & Gynecology
DX: Z12.31 Encounter for screening mammogram for malignant neoplasm of breast (principal); Z78.0 Asymptomatic menopausal state
CPT/HCPCS: 77067; 77080

== ENCOUNTER 2021-04-29 10:46 | Day surgery (SDC) | payer OTHER ==
[2021-04-27 10:54] VITALS: BMI 32.3
[~2021-04-29 10:46] MED LIST changes: +ALBUTEROL NEB (CONC) 2.5 MG/0.5 ML INHALATION ONE; +ATROPINE SULFATE 0.4 MG/ML 1 ML VIAL IM ONE; +LIDOCAINE 1% (10MG/ML) FOR IV START INTRADERMA PRN; -LIDOCAINE 1% 20 ML VIAL (10MG/ML) FOR IV START INTRADERMA PRN; +LIDOCAINE 2% (PF) 20 MG/ML 5 ML VIAL INHALATION ONE; +LIDOCAINE VISCOUS 300 MG/15 ML CUP MUCOUS MEM ONE
[2021-04-29 11:18] VITALS: RESP 18; TEMP 97
[2021-04-29] MEDS ORDERED: LIDOCAINE 1% INJ 10MG/ML (20 ML MDV) ONE (11:44)
[2021-04-29] MEDS ORDERED: PROPOFOL 10 MG/ML 20 ML VIAL IV ONE (11:44)
[2021-04-29] MEDS ORDERED: LIDOCAINE 2% INJ 20 MG/ML INTRATRACH ONE ×3 (11:46→11:50)
[2021-04-29 12:40] VITALS: BP 132/78; PULSE 67
--- NOTE | 2021-04-29 18:30 | PCN ---
PROCEDURE NOTE PROCEDURE: Bronchoscopy, airway examination, therapeutic lavage, BAL right middle lobe. PREOPERATIVE DIAGNOSIS: Tracheobronchomalacia. POSTOPERATIVE DIAGNOSIS: Tracheobronchomalacia. OCEANOGRAPHIC METEOROLOGIST: Dr. Gray. PROCEDURE DESCRIPTION: There was informed consent and universal timeout. Anesthesia provided general anesthesia. The patient's procedure was done in room #1 [facility]. After the patient was adequately sedated and being fully monitored, the bronchoscope was inserted through the left nostril. It passed through the left nasopharynx into the oropharynx. The hypopharynx was identified and topicalized. The hypopharyngeal structures, including anterior commissure, true cords, false cords, arytenoids, piriform sinuses, right and left valleculae and epiglottis were evaluated. Everything appeared to be normal. The glottic opening was topicalized. The bronchoscope was pushed through the glottic opening into the trachea. There was a moderate degree of tracheomalacia. Tracheal laura was sharp. The right and left mainstem were topicalized. Right upper lobe and its 3 segments, right middle lobe and its 2 segments, right lower lobe and its 5 segments, left upper lobe proper and its 2 segments, lingula and its 2 segments and left lower lobe and its 4 segments all had similar findings of diffuse bronchomalacia. There were secretions noted throughout. There was erythema and hyperemia of the airways. The airways were friable. There was vascular engorgement of the airways. There was no mass or tumor. The secretions were suctioned with some difficulty. The bronchoscope was wedged into the right middle lobe. We did a formal BAL. The fluid will be sent for analysis. The bronchoscope was withdrawn and the patient tolerated the procedure well and will be recovered. There was no immediate complication. I will speak to the patient's sister. MMODL / IJN: [id number] /
[2021-04-29 19:26] LABS: Appearance,BF Hazy; Color,BF Red; Nucleated Cells, Body Fluid 10 /uL; RBC, Body Fluid 40000 /uL
== END 2021-04-29 12:44 | disposition home or self-care (01) ==
LOC: ORWHC2ENDO 10:46
PROVIDERS: ATTEND Internal Medicine Critical Care Medicine
DX: J39.8 Other specified diseases of upper respiratory tract (principal); J98.09 Other diseases of bronchus, not elsewhere classified; Z86.19 Personal history of other infectious and parasitic diseases; I34.0 Nonrheumatic mitral (valve) insufficiency; I47.1 Supraventricular tachycardia; J45.909 Unspecified asthma, uncomplicated; K22.70 Barrett's esophagus without dysplasia; Z80.3 Family history of malignant neoplasm of breast; Z82.3 Family history of stroke; Z83.49 Family history of other endocrine, nutritional and metabolic diseases; Z87.891 Personal history of nicotine dependence; Z98.890 Other specified postprocedural states; E78.5 Hyperlipidemia, unspecified; R05.8 Other specified cough; F41.9 Anxiety disorder, unspecified; Z97.2 Presence of dental prosthetic device (complete) (partial); K21.9 Gastro-esophageal reflux disease without esophagitis; Z79.1 Long term (current) use of non-steroidal anti-inflammatories (NSAID); Z79.82 Long term (current) use of aspirin; Z79.51 Long term (current) use of inhaled steroids; Z79.899 Other long term (current) drug therapy; Z79.890 Hormone replacement therapy; Z88.1 Allergy status to other antibiotic agents; Z88.8 Allergy status to other drugs, medicaments and biological substances
CPT/HCPCS: 87798 ×3; 87496; 87498; 87529; 88108; 88305; 89050; 87252; 87502; 87634; 87070; 87205; 87116; 87102; 87077; 87186; 87206; 31624; J2001 ×2; J2704

== ENCOUNTER → 2021-06-29 | Outpatient (CLI) | payer OTHER ==
[2021-06-29 11:41] VITALS: BP 156/67; PULSE 78; RESP 17; TEMP 95
--- NOTE | 2021-06-29 12:31 | P.HPOB ---
History of Present Illness H&P Date: 06/29/21 Chief Complaint: The patient is here for her routine gynecologic exam and ma mmogram. This is a 65-year-old 012 with an LMP of 2006. The patient is without gynecologic complaints and denies any postmenopausal bleeding. Review of Systems She has gained about 5 pounds over the past year. Respiratory: Occasional shortness of breath consistent with her interstitial lung disease and she is seeing somebody for this. She denies cardiac problems. GI: Occasional rectal redness and soreness with drinking too much Diet Coke. Past Medical History Past Medical History: Asthma, GERD/Reflux, Hearing Disorder / Deafness, Hyperlipidemia, Osteoarthritis (OA), Skin Disorder, Thyroid Disorder Additional Past Medical History / Comment(s): Interstitial lung disease. Tracheobronchial malacia. 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 History of Any Multi-Drug Resistant Organisms: None Reported Past Surgical History: Breast Surgery, Cardiac Ablation, Heart Catheterization, Orthopedic Surgery, Tonsillectomy, Tubal Ligation Additional Past Surgical History / Comment(s): breast reduction, D&C, EGD, colonosopy 2018 (2nd,next after 5yr)), rt knee surgery. TITANIUM PLATE RT BIG TOE X2 Past Anesthesia/Blood Transfusion Reactions: Motion Sickness Additional Past Anesthesia/Blood Transfusion Reaction / Comment(s): has needed xopenex treatment after surgery in the past. Past Psychological History: Anxiety Additional Psychological History / Comment(s): PANIC ATTACK Smoking Status: Former smoker Past Alcohol Use History: Occasional (1 per week) Additional Past Alcohol Use History / Comment(s): STARTED SMOKING AT AGE 17 - QUIT MAR 1999 SMOKED 1 1/2PPD Past Drug Use History: None Reported Additional History: She has been a since 2019. She is not seeing anybody at this time and is not sexually active. 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 - Past Family History Mother Family Medical History: Cancer Additional Family Medical History / Comment(s): Breast cancer. She also has aunts, cousins and a grandmother had breast cancer. Father Family Medical History: Cancer Additional Family Medical History / Comment(s): Bladder and oral cancer. Medications and Allergies Home Medications Medication Instructions Recorded Confirmed Type ALPRAZolam [Xanax] 1.5 - 2 mg PO HS 10/14/14 04/29/21 History Aspirin 81 mg PO DAILY 10/14/14 04/29/21 History Flecainide [Tambocor] 50 mg PO Q12HR 10/14/14 04/29/21 History Glucosamine/Chondr Liu A Sod [Osteo 1 each PO BID 10/14/14 04/29/21 History Bi-Flex Caplet] Levothyroxine Sodium [Synthroid] 100 mcg PO DAILY 10/14/14 04/29/21 History Montelukast [Singulair] 10 mg PO DAILY 10/14/14 04/29/21 History Multivitamins, Thera [Theragran] 1 each PO DAILY 10/14/14 04/29/21 History Vitamin B Complex 1 each PO DAILY 10/14/14 04/29/21 History atenoloL [Tenormin] 25 mg PO HS 10/14/14 04/29/21 History Cyanocobalamin (Vitamin B-12) 1,000 mcg PO DAILY 10/17/17 04/29/21 History [Vitamin B-12] Levalbuterol HCl [Xopenex] 1.25 mg INHALATION TID PRN 10/17/17 04/29/21 History Levalbuterol Hfa Inhaler [Xopenex 2 puff INHALATION Q4H PRN 10/17/17 04/29/21 History Hfa Inhaler] Rosuvastatin Calcium [Crestor] 20 mg PO DAILY 10/17/17 04/29/21 History Chaparal Supplement 1,000 mg PO HS 12/22/17 04/29/21 History Monolaurin Supplement 1,200 mg PO DAILY 12/22/17 04/29/21 History Triamcinolone 0.1% Cream [Kenalog 1 applicatio TOPICAL BID PRN 12/22/17 04/29/21 History 0.1% Cream] Naproxen 500 mg PO BID 05/21/19 04/29/21 History DULoxetine HCL [Cymbalta] 30 mg PO DAILY 05/26/20 04/29/21 History Omeprazole [PriLOSEC] 40 mg PO DAILY 05/26/20 04/29/21 History Fluticasone Propion/Salmeterol 1 puff INHALATION 06/29/21 History [Airduo Digihaler 232-14 Mcg] L.acidoph,Paracasei, B.lactis 1 capsule DAILY 06/29/21 06/29/21 History [Probiotic] Allergies Allergy/AdvReac Type Severity Reaction Status Date / Time albuterol AdvReac Rapid Verified 06/29/21 11:23 Heart Rate azithromycin AdvReac Unknown Verified 06/29/21 11:23 [From Zithromax Z-Jair] stimulant medications Allergy Rapid Uncoded 06/29/21 11:23 Heart Rate Exam Vital Signs Temp Pulse Resp BP Pulse Ox 06/29/21 11:32 95 F L 78 17 156/67 99 Intake and Output 06/28/21 06/29/21 06/29/21 22:59 06:59 14:59 Other: Weight 89.811 kg Height 5 feet 6 inches, weight 198 pounds, BMI 32.0. This is a well-developed well-nourished white female who is alert and oriented times 3 in no acute distress. HEENT: Within normal limits. NECK: Supple without mass or thyromegaly. CHEST AND LUNGS: Clear to auscultation. HEART: Regular rate and rhythm. BREASTS: Are without mass or discharge. AXILLARY EXAM: Negative for adenopathy. BACK: Negative for CVA tenderness. ABDOMEN: Soft, nontender, without palpable masses. PELVIC EXAM: Normal external genitalia with mild atrophy. Cervix and vagina appe ar normal mild atrophy. There is no unusual discharge. There is no evidence of prolapse. The uterus is midposition, nongravid size and nontender. There are no palpable adnexal masses or tenderness. RECTAL EXAM: Rectovaginal exam is negative for mass or tenderness and is negative for occult blood. EXTREMITIES: Nontender. IMPRESSION: 1. 65-year-old menopausal female with normal gynecologic exam. PLAN: 1. Pap smear cotest was performed. If this is negative, we will plan on discontinuing Pap smear screening. 2. Self breast awareness was discussed with the patient. We have also discussed symptoms associated with inflammatory breast cancer. 3. Screening mammogram was done today. 4. Osteoporosis prevention was discussed. I have stressed the importance of adequate calcium, vitamin D and regular exercise. Recommended amounts of calcium and vitamin D were also discussed. 5. She has received her Covid vaccination series, but has not gotten any booster. She will discuss this with her PCP. 6. She was advised to return in one year for her annual well woman exam.
--- NOTE | 2021-06-30 10:37 | MM ---
Reason for exam: screening (asymptomatic). Last mammogram was performed 1 year and 1 month ago. History: Patient is postmenopausal. Family history of breast cancer in maternal aunt, premenopausal breast cancer in mother at age 50, breast cancer in maternal grandmother at age 70, and breast cancer in cousin. September 2009. Took hormonal contraceptives for 12 years beginning at age 14. Took estrogen for 6 months beginning at age 39. Physical Findings: A clinical breast exam by your physician is recommended on an annual basis and results should be correlated with mammographic findings. MG Screening Mammo w CAD Bilateral CC and MLO view(s) were taken. Prior study comparison: May 26, 2020, bilateral MG screening mammo w CAD. June 06, 2019, right breast MG work up mamm w CAD RT. There are scattered fibroglandular densities. Stable benign calcifications. There is no discrete abnormality. No significant changes when compared with prior studies. ASSESSMENT: Benign, BI-RAD 2 RECOMMENDATION: Routine screening mammogram of both breasts in 1 year.
== END ==
LOC: RADMAMWWP 10:50
PROVIDERS: ATTEND Obstetrics & Gynecology
DX: Z12.31 Encounter for screening mammogram for malignant neoplasm of breast (principal)
CPT/HCPCS: 77067

== ENCOUNTER → 2022-07-05 | Outpatient (CLI) | payer MEDICARE | END | disposition home or self-care (01) | LOC: CANPRECLI → RADBDWWP 12:40 | PROVIDERS: ATTEND Family Medicine | DX: Z53.9 Procedure and treatment not carried out, unspecified reason (principal) ==

== ENCOUNTER 2022-09-21 06:44 | Day surgery (SDC) | payer MEDICARE, OTHER ==
[~2022-09-21 06:44] MED LIST changes: -ALBUTEROL NEB (CONC) 2.5 MG/0.5 ML INHALATION ONE; -ATROPINE SULFATE 0.4 MG/ML 1 ML VIAL IM ONE; -LACTATED RINGERS 1,000 ML IV SCH; -LIDOCAINE 1% (10MG/ML) FOR IV START INTRADERMA PRN; -LIDOCAINE 2% (PF) 20 MG/ML 5 ML VIAL INHALATION ONE; -LIDOCAINE VISCOUS 300 MG/15 ML CUP MUCOUS MEM ONE; +TETRACAINE 0.5% OPHTH (PF) DROPS 4 ML BTL OP PRN
[2022-09-21] MEDS ORDERED: LACTATED RINGERS 1,000 ML IV SCH (07:04)
[2022-09-21] MEDS: CYCLOPENTOLATE 1% OPHTH SOLN 2 ML BTL OP PRN ×3 (07:22→07:42)
[2022-09-21] MEDS: guaiFENesin-DM 100-10MG/5ML 10 ML CUP PO STA ×2 (07:22→07:40)
[2022-09-21] MEDS: PHENYLEPHRINE 2.5% OPHTH DRP 2ML OP PRN ×4 (07:28→07:45)
[2022-09-21] MEDS ORDERED: LIDOCAINE 1% (10MG/ML) FOR IV START INTRADERMA ONE (07:30)
[2022-09-21] MEDS ORDERED: PROPOFOL 10 MG/ML 20 ML VIAL IV ONE (08:09)
[2022-09-21] MEDS ORDERED: MIDAZOLAM 2 MG/2 ML VIAL ONE (08:09)
[2022-09-21] MEDS ORDERED: SUCCINYLCHOLINE CHLORIDE 200 MG/10 ML VIAL IV ONE (08:09)
[2022-09-21] MEDS ORDERED: GLYCOPYRROLATE 0.2 MG/ML 2 ML VIAL ONE (08:09)
[2022-09-21] MEDS ORDERED: PHENYLEPHRINE-0.9% NACL SYG 1,000 MCG/10 ML SYRINGE ONE (08:09)
[2022-09-21] MEDS ORDERED: fentaNYL (PF) 50 MCG/ML 2 ML AMP ONE (08:09)
[2022-09-21] MEDS ORDERED: HYALURONATE SODIUM INTRAOCULAR 1 EACH SYRINGE (12MG/ML) INTRAOCULA ONE ×2 (08:09→08:29)
[2022-09-21] MEDS ORDERED: LIDOCAINE 1% (PF) 10MG/ML VIAL MISCELLANE ONE ×2 (08:10→08:29)
[2022-09-21] MEDS ORDERED: BALANCED SALT IRRIG SOLN COMB2 15 ML IRRIG.SOLN INTRAOCULA ONE ×2 (08:10→08:29)
[2022-09-21] MEDS: TIMOLOL 0.5% OPHTH DROPS 5 ML BTL OP PRN ×2 (08:10→08:50)
[2022-09-21] MEDS: MOXIFLOXACIN HCL 0.5% DROPS 3 ML BTL OP PRN ×2 (08:11→08:50)
[2022-09-21] MEDS ORDERED: ATROPINE OPHTH SOLN 1% 5ML BTL RIGHT EYE ONE ×2 (08:33→08:50)
--- NOTE | 2022-09-21 08:53 | P.OP ---
Date of Procedure: 09/21/22 Preoperative Diagnosis: NS & PSC Postoperative Diagnosis: same Procedure(s) Performed: PIOL< OD Implants: AO1OU 21.50 Anesthesia: GETA Surgeon: Bhupendra Kennedy Pathology: none sent Condition: stable Disposition: same day Indications for Procedure: blurry vision Operative Findings: no complications
[2022-09-21 09:14] VITALS: TEMP 97.4
[2022-09-21 10:20] VITALS: BP 143/80; PULSE 64; RESP 16
--- NOTE | 2022-09-21 18:08 | OP ---
OPERATIVE REPORT DATE OF SERVICE : 09/21/2022 PROCEDURE PERFORMED: Phacoemulsification of cataract and intraocular lens implant of the right eye. PREOPERATIVE DIAGNOSES: 1. Nuclear sclerosis. 2. Cortical sclerosis. POSTOPERATIVE DIAGNOSES: 1. Nuclear sclerosis. 2. Cortical sclerosis. ANESTHESIA: Topical. ESTIMATED BLOOD LOSS: None. SPECIMEN TAKEN: None. NARRATIVE: After obtaining the appropriate consent, the patient was brought to the operating room. There, she was placed under cardiac monitoring and prepped and draped in the usual sterile manner. She was approached from her right temporal side, and a 5.5 mm Teagan ring was marked with gentian jennifer and placed centrally over the Purkinje reflex. This was followed by a paracentesis at the 11 o'clock position with an MVR blade. Through this opening, 1% Xylocaine MPF 50:50 mix with balanced salt solution was injected into the anterior chamber. This was followed by stabilization of the anterior chamber with Amvisc. At the 9 o'clock position, a 2.75 mm rosina keratome was used to create a self-sealing corneal flap incision in Langerman fashion. Through this opening, a cystotome was introduced to begin a continuous tear capsulorrhexis, which was completed using the Utrata forceps. Care was taken to ensure the size of the rhexis was at least the size of the tadeo placed on the patient's cornea earlier in the case. Hydrodissection and hydrodelineation of the lens were accomplished with balanced salt solution. Phacoemulsification of the lens utilizing phaco chop was accomplished at 7.99 seconds at 7% power. Additional Xylocaine MPF was instilled into the anterior chamber. This was followed by removal of the remaining cortical material under irrigation and aspiration as well as careful polishing of the posterior capsule in the capsule vacuum mode. There was an appreciation of a small probably 1 clock hour zonular dehiscence at about the 5 o'clock area noted during clean-up procedures of the capsular bag. Using both Wake and Pepose capsule polishing instruments, the underside of the capsular bag as far equatorially as possible was used to remove as much of the debris that was noted. Additional Amvisc was then used to stabilize the capsular bag. The temporal incision was enlarged slightly with a rosina blade, and a capsular tension ring of 13 mm was placed in the equator of the bag without any difficulty. This was followed by placement of a Bausch and Lomb Crystalens, model AO1UV, 21.5-diopter posterior chamber intraocular lens. The remaining viscoelastic was removed from in and around the intraocular lens as well as the anterior chamber. The eye was then brought to normal intraocular pressure through the paracentesis port with balanced salt solution. The wounds were dried with a Weck-Kiesha sponge, and Tisseel was used to ensure watertight integrity after the case. The patient then received 2 drops of 0.5% timolol followed by 2 drops of 0.5% moxifloxacin and 2 drops of 1% atropine. She was then lightly patched and shielded in the usual manner. She was extubated in the room and returned to phase 1 recovery in good condition and discharged from the hospital from phase 2 alert and oriented and in good condition. MMJONH / MIRZA: [id number] /
== END 2022-09-21 10:43 | disposition home or self-care (01) ==
LOC: OR 06:44
PROVIDERS: ATTEND Ophthalmology
DX: H25.11 Age-related nuclear cataract, right eye (principal); H25.011 Cortical age-related cataract, right eye; E78.5 Hyperlipidemia, unspecified; I47.1 Supraventricular tachycardia; I34.1 Nonrheumatic mitral (valve) prolapse; F41.9 Anxiety disorder, unspecified; J39.8 Other specified diseases of upper respiratory tract; E07.9 Disorder of thyroid, unspecified; J45.909 Unspecified asthma, uncomplicated; Z87.891 Personal history of nicotine dependence; F10.20 Alcohol dependence, uncomplicated; M19.90 Unspecified osteoarthritis, unspecified site; K21.9 Gastro-esophageal reflux disease without esophagitis; Z86.73 Personal history of transient ischemic attack (TIA), and cerebral infarction without residual deficits; Z79.51 Long term (current) use of inhaled steroids; Z79.899 Other long term (current) drug therapy; Z79.890 Hormone replacement therapy; Z98.890 Other specified postprocedural states
CPT/HCPCS: 66982; V2632; V2788; C1762; J2250; J0330; J3010; J2001; J2370; J2704

== ENCOUNTER 2022-10-26 06:15 | Day surgery (SDC) | payer MEDICARE, OTHER ==
[2022-10-24 15:35] VITALS: BMI 31.4
[2022-10-26] MEDS ORDERED: LIDOCAINE 1% (10MG/ML) FOR IV START INTRADERMA PRN (06:36)
[2022-10-26] MEDS ORDERED: LACTATED RINGERS 1,000 ML IV SCH (06:36)
[2022-10-26] MEDS: CYCLOPENTOLATE 1% OPHTH SOLN 2 ML BTL OP PRN ×3 (06:57→07:14)
[2022-10-26] MEDS: PHENYLEPHRINE 2.5% OPHTH DRP 2ML OP PRN ×3 (07:01→07:19)
[2022-10-26] MEDS ORDERED: guaiFENesin-DM 100-10MG/5ML 10 ML CUP PO STA (07:02)
[2022-10-26] MEDS ORDERED: BALANCED SALT IRRIG SOLN COMB2 15 ML IRRIG.SOLN INTRAOCULA ONE ×2 (07:23→08:04)
[2022-10-26] MEDS ORDERED: fentaNYL (PF) 50 MCG/ML 2 ML AMP ONE (07:23)
[2022-10-26] MEDS ORDERED: PROPOFOL 10 MG/ML 20 ML VIAL IV ONE (07:23)
[2022-10-26] MEDS ORDERED: LIDOCAINE 2% INJ 20 MG/ML (2 ML VIAL) ONE (07:23)
[2022-10-26] MEDS ORDERED: SUCCINYLCHOLINE CHLORIDE 200 MG/10 ML VIAL IV ONE (07:23)
[2022-10-26] MEDS ORDERED: MIDAZOLAM 2 MG/2 ML VIAL ONE (07:23)
[2022-10-26] MEDS ORDERED: HYALURONATE SODIUM INTRAOCULAR 1 EACH SYRINGE (12MG/ML) INTRAOCULA ONE ×2 (07:23→08:04)
[2022-10-26] MEDS ORDERED: LIDOCAINE 1% (PF) 10MG/ML VIAL INTRAARTIC ONE ×2 (07:33→08:04)
[2022-10-26] MEDS: TIMOLOL 0.5% OPHTH DROPS 5 ML BTL OP PRN ×2 (07:37→08:05)
[2022-10-26] MEDS: MOXIFLOXACIN HCL 0.5% DROPS 3 ML BTL OP PRN ×2 (07:37→08:05)
[2022-10-26] MEDS ORDERED: ATROPINE OPHTH SOLN 1% 5ML BTL OPHTHALMIC ONE (08:11)
--- NOTE | 2022-10-26 08:15 | P.OP ---
Date of Procedure: 10/26/22 Preoperative Diagnosis: NS Postoperative Diagnosis: same Procedure(s) Performed: PIOL, OS Implants: AO1UV 21.50 Anesthesia: GETA Surgeon: Bhupendra Kennedy Pathology: none sent Condition: stable Disposition: same day Indications for Procedure: blurry vision Operative Findings: no complcations
[2022-10-26 08:27] VITALS: TEMP 97.3
[2022-10-26] MEDS ORDERED: ARTIFICIAL TEARS-HYPROMELLOSE DROPS 15 ML BTL LEFT EYE PRN (08:57)
[2022-10-26 09:40] VITALS: RESP 20
[2022-10-26 09:52] VITALS: BP 153/82; PULSE 63
--- NOTE | 2022-10-26 15:54 | OP ---
OPERATIVE REPORT DATE OF SERVICE : 10/26/2022 PREOPERATIVE DIAGNOSIS: Nuclear sclerosis and cortical sclerosis. POSTOPERATIVE DIAGNOSIS: Nuclear sclerosis and cortical sclerosis. OPERATION: Phacoemulsification of cataract with intraocular lens implant of the left eye using a Crystalens. ANESTHESIA: General. NARRATIVE: After obtaining the appropriate consent, the patient was brought to the operating room. There the patient was placed under cardiac monitoring, prepped and draped in the usual sterile manner. The patient was approached from the left temporal side. The 5.5 mm Teagan ring inked in gentian jennifer was placed centrally on the cornea. At the 11 o'clock position, a 1.1 mm keratome was used to create a paracentesis port. Through this opening, 1% Xylocaine MPF 50/50 mix with balanced salt solution was injected into the anterior chamber. This was followed by stabilization of the anterior chamber with Amvisc viscoelastic. At the 9 o'clock position, a 2.75 mm rosina keratome was used to create a self-scaling corneal flap incision in a Langerman fashion. Through this opening, a cystotome was introduced to begin a continuous tear capsulorrhexis which was completed using the Utrata forceps. Care was taken to ensure that the capsulorrhexis was at least the size of the tadeo on the anterior cornea. Hydrodissection and hydrodelineation of the lens were accomplished with balanced salt solution. Phacoemulsification of the lens utilizing phaco chop was accomplished in 7.93 seconds at 7% power. Addition Xylocaine MPF was instilled into the anterior chamber. This was followed by removal of the remaining cortex under irrigation and aspiration along with careful polishing of the posterior capsule in a capsule vacuum mode. Additional Amvisc viscoelastic was then used to stabilize the capsular bag, and the Bausch and Lomb Crystalens, model AO1UV, 21.5 diopter intraocular lens was injected into the capsular bag without difficulty. The lens was rotated 270 degrees so that the haptics resided at the 6 and 12 o'clock positions, and all remaining viscoelastic was then removed from within the capsular bag and around the anterior chamber. The eye was brought to normal intraocular pressure through the paracentesis port along with slight hydration of the incision sites. Watertight integrity was confirmed using a fluorescein strip. The patient then received 2 drops of 0.5% timolol followed by 2 drops of Vigamox and 2 drops of 1% atropine. The patient was then lightly patched and shielded in the usual manner. There were no complications from the procedure. The patient tolerated the procedure well and was returned to outpatient recovery in good condition. DEMETRI / MIRZA: [id number] / MTDD
== END 2022-10-26 10:10 | disposition home or self-care (01) ==
LOC: OR 06:15
PROVIDERS: ATTEND Ophthalmology
DX: H25.12 Age-related nuclear cataract, left eye (principal); H25.012 Cortical age-related cataract, left eye; I10 Essential (primary) hypertension; I47.1 Supraventricular tachycardia; J39.8 Other specified diseases of upper respiratory tract; J45.909 Unspecified asthma, uncomplicated; J84.9 Interstitial pulmonary disease, unspecified; M19.90 Unspecified osteoarthritis, unspecified site; E07.9 Disorder of thyroid, unspecified; F41.9 Anxiety disorder, unspecified; I34.1 Nonrheumatic mitral (valve) prolapse; A69.20 Lyme disease, unspecified; K21.9 Gastro-esophageal reflux disease without esophagitis; Z86.73 Personal history of transient ischemic attack (TIA), and cerebral infarction without residual deficits; Z79.1 Long term (current) use of non-steroidal anti-inflammatories (NSAID); Z79.51 Long term (current) use of inhaled steroids; Z79.52 Long term (current) use of systemic steroids; Z79.82 Long term (current) use of aspirin; Z79.890 Hormone replacement therapy; Z79.899 Other long term (current) drug therapy; F10.20 Alcohol dependence, uncomplicated; Z87.891 Personal history of nicotine dependence
CPT/HCPCS: 66984; J2001

== ENCOUNTER → 2023-07-11 | Outpatient (CLI) | payer MEDICARE ==
[2023-07-11 11:54] VITALS: BP 131/69; PULSE 73; RESP 17; TEMP 98
--- NOTE | 2023-07-11 12:25 | P.HPOB ---
History of Present Illness H&P Date: 07/11/23 Chief Complaint: The patient is here for her routine gynecologic exam and ma mmogram. This is a 67-year-old 012 with an LMP of 2006. The patient is without gynecologic complaints and denies recent pelvic pain. Review of Systems Her weight has been stable. Respiratory: She has had some ALLERGY symptoms and symptoms associated with her chronic lung disease. She denies cardiac problems. She has had some frequent loose stools related to her new lung medication. Past Medical History Past Medical History: Asthma, CVA/TIA, GERD/Reflux, Hearing Disorder / Deafness, Hyperlipidemia, Osteoarthritis (OA), Skin Disorder, Thyroid Disorder Additional Past Medical History / Comment(s): Interstitial lung disease. Tracheobronchial malacia. 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 History of Any Multi-Drug Resistant Organisms: None Reported Past Surgical History: Breast Surgery, Cardiac Ablation, Heart Catheterization, Orthopedic Surgery, Tonsillectomy, Tubal Ligation Additional Past Surgical History / Comment(s): breast reduction, D&C, EGD, colonosopy, rt knee surgery. TITANIUM PLATE RT BIG TOE x1 - (surgery x2) .,cardiac ablations x2 Past Anesthesia/Blood Transfusion Reactions: Motion Sickness Additional Past Anesthesia/Blood Transfusion Reaction / Comment(s): has needed xopenex treatment after surgery in the past. Past Psychological History: Anxiety (PHQ-2 questionaire was given and she scores 0. This is a negative screen for depression.) Additional Psychological History / Comment(s): PANIC ATTACK Smoking Status: Former smoker Past Alcohol Use History: Occasional (2 drinks per week.) Additional Past Alcohol Use History / Comment(s): STARTED SMOKING AT AGE 17 - QUIT MAR 1999 SMOKED 1 1/2PPD Past Drug Use History: None Reported Additional History: She has been a since 2019 and is not sexually active at this time. 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 - Past Family History Mother Family Medical History: Cancer, Congestive Heart Failure (CHF) Additional Family Medical History / Comment(s): Breast cancer. She also has aunts, cousins and a grandmother had breast cancer. Father Family Medical History: Cancer Additional Family Medical History / Comment(s): Bladder and oral cancer. Medications and Allergies Home Medications Medication Instructions Recorded Confirmed Type ALPRAZolam [Xanax] 1.5 - 2 tab PO HS 10/14/14 07/11/23 History Aspirin 162 mg PO DAILY 10/14/14 07/11/23 History Flecainide [Tambocor] 50 mg PO Q12HR 10/14/14 07/11/23 History Glucosamine/Chondr Liu A Sod [Osteo 1 each PO BID 10/14/14 07/11/23 History Bi-Flex Caplet] Levothyroxine Sodium [Synthroid] 100 mcg PO DAILY 10/14/14 07/11/23 History Montelukast [Singulair] 10 mg PO DAILY 10/14/14 07/11/23 History Vitamin B Complex 1 each PO DAILY 10/14/14 07/11/23 History atenoloL [Tenormin] 25 mg PO HS 10/14/14 07/11/23 History Cyanocobalamin (Vitamin B-12) 1,000 mcg PO DAILY 10/17/17 07/11/23 History [Vitamin B-12] Levalbuterol Hfa Inhaler [Xopenex 2 puff INHALATION DIRECTED PRN 10/17/17 07/11/23 History Hfa Inhaler] Rosuvastatin Calcium [Crestor] 20 mg PO HS 10/17/17 07/11/23 History Chaparal Supplement 1,000 mg PO HS 12/22/17 07/11/23 History Monolaurin Supplement 990 mg PO DAILY 12/22/17 07/11/23 History Triamcinolone 0.1% Cream [Kenalog 1 applicatio TOPICAL BID PRN 12/22/17 07/11/23 History 0.1% Cream] Omeprazole [PriLOSEC] 40 mg PO DAILY 05/26/20 07/11/23 History L.acidoph,Paracasei, B.lactis 1 capsule DAILY 06/29/21 07/11/23 History [Probiotic] DULoxetine HCL [Cymbalta] 60 mg PO DAILY 07/05/22 07/11/23 History Fluticasone/Umeclidin/Vilanter 1 inhalation PO DAILY 07/05/22 07/11/23 History [Trelegy Ellipta 200-62.5-25] Benzonatate [Tessalon Perle] 200 mg PO TID 09/19/22 07/11/23 History Fluticasone Propionate [Flonase 1 spray EA NOSTRIL DAILY 09/19/22 07/11/23 History Allergy Relief] Tezepelumab-Ekko [Tezspire] 210 mg SQ Q30D 09/19/22 07/11/23 History Celecoxib [CeleBREX] 400 mg PO DAILY 09/21/22 07/11/23 History Ascorbic Acid [Vitamin C] 1,000 mg PO DAILY 10/24/22 07/11/23 History Cholecalciferol [Vitamin D3 (25 25 mcg PO DAILY 10/24/22 07/11/23 History Mcg = 1000 Iu)] Cider Vinegar [Apple Cider Vinegar] 3 tab PO PC-TID 10/24/22 07/11/23 History Losartan [Cozaar] 75 mg PO HS 10/24/22 07/11/23 History Lubricant Tears 1 drop BOTH EYES DIRECTED PRN 10/24/22 07/11/23 History Multivit-Min/Iron/Folic/Lutein 1 each PO DAILY 10/24/22 07/11/23 History [Centrum Silver Women Tablet] Cetirizine HCl [Zyrtec] 5 mg PO DAILY 07/11/23 07/11/23 History Allergies Allergy/AdvReac Type Severity Reaction Status Date / Time albuterol AdvReac Rapid Verified 07/11/23 11:36 Heart Rate azithromycin AdvReac told to Verified 07/11/23 11:36 [From Zithromax Z-Jair] never take with flecainide. stimulant medications Allergy Rapid Uncoded 07/11/23 11:36 Heart Rate Exam Vital Signs Temp Pulse Resp BP Pulse Ox 07/11/23 11:40 98 F 73 17 131/69 98 Intake and Output 07/10/23 07/11/23 07/11/23 22:59 06:59 14:59 Other: Weight 88.904 kg Height 5 feet 6 inches, weight 196 pounds, BMI 31.6. This is a well-developed well-nourished white female who is alert and oriented times 3 in no acute distress. HEENT: Within normal limits. NECK: Supple without mass or thyromegaly. CHEST AND LUNGS: There is moderate bilateral scattered rhonchi without wheezing. HEART: Regular rate and rhythm. BREASTS: Are without mass or discharge. AXILLARY EXAM: Negative for adenopathy. BACK: Negative for CVA tenderness. ABDOMEN: Soft, nontender, without palpable masses. PELVIC EXAM: Normal external genitalia with mild atrophy. Cervix and vagina appear normal mild atrophy. There is no unusual discharge. There is no evidence of prolapse. The uterus is midposition, nongravid size and nontender. There are no palpable adnexal masses, but there is mild left adnexal tenderness. The right adnexa is nontender. RECTAL EXAM: Rectovaginal exam is negative for mass or tenderness and is negative for occult blood. EXTREMITIES: Nontender. IMPRESSION: 1. 67-year-old menopausal female with left pelvic adnexal tenderness without p alpable mass. 2. History of osteopenia. PLAN: 1. Pap smears have been discontinued. 2. Self breast awareness was discussed with the patient. We have also discussed symptoms associated with inflammatory breast cancer. 3. Screening mammogram will be done today. 4. Pelvic ultrasound was recommended and the ORDER slip was given to the patient for this. 5. PHQ-2 questionaire was given and she scores 0. This is a negative screen for depression. 6.Osteoporosis prevention was discussed. I have stressed the importance of adequate calcium, vitamin D and regular exercise. Recommended amounts of calcium and vitamin D were also discussed. We will plan on repeating the bone density test in 1 year. 7. She was advised to return in one year for her annual well woman exam.
== END ==
LOC: WWCWWP 11:27
PROVIDERS: ATTEND Obstetrics & Gynecology
DX: Z12.31 Encounter for screening mammogram for malignant neoplasm of breast (principal); M85.80 Other specified disorders of bone density and structure, unspecified site; I34.1 Nonrheumatic mitral (valve) prolapse; J45.909 Unspecified asthma, uncomplicated; F41.9 Anxiety disorder, unspecified; K21.9 Gastro-esophageal reflux disease without esophagitis; E78.5 Hyperlipidemia, unspecified; E07.9 Disorder of thyroid, unspecified; M51.9 Unspecified thoracic, thoracolumbar and lumbosacral intervertebral disc disorder; M19.90 Unspecified osteoarthritis, unspecified site; Z80.3 Family history of malignant neoplasm of breast; Z78.0 Asymptomatic menopausal state; Z86.73 Personal history of transient ischemic attack (TIA), and cerebral infarction without residual deficits; Z87.891 Personal history of nicotine dependence; Z98.51 Tubal ligation status; Z87.01 Personal history of pneumonia (recurrent); Z86.69 Personal history of other diseases of the nervous system and sense organs; Z87.2 Personal history of diseases of the skin and subcutaneous tissue; Z87.19 Personal history of other diseases of the digestive system; Z79.82 Long term (current) use of aspirin; Z79.890 Hormone replacement therapy; Z79.51 Long term (current) use of inhaled steroids; Z79.899 Other long term (current) drug therapy; Z88.8 Allergy status to other drugs, medicaments and biological substances; Z88.1 Allergy status to other antibiotic agents
CPT/HCPCS: 77063; 77067

== ENCOUNTER → 2023-08-09 | Outpatient (CLI) | payer MEDICARE ==
--- NOTE | 2023-08-09 14:20 | US ---
EXAMINATION TYPE: US pelvic complete DATE OF EXAM: 08/09/2023 COMPARISON: NONE CLINICAL INDICATION: Female, 67 years old with history of R68.89 OTHER GENERAL SYMPTOMS AND SIGNS,PEL LUIS OLIVIA; Left pelvic pain TECHNIQUE: . Transabdominal sonographic images of the pelvis were acquired. Transvaginal sonographi c images were medically necessary to better assess the following anatomy: endometrium and ovaries Date of LMP: 16 years ago EXAM MEASUREMENTS: Uterus: 5.8 x 2.8 x 3.5 cm Endometrial Stripe: 0.3 cm 1. Uterus: appears wnl 2. Endometrium: appears wnl 3. Right Ovary: not seen due to overlying bowel gas 4. Left Ovary: not seen due to overlying bowel gas 5. Bilateral Adnexa: wnl 6. Posterior cul-de-sac: wnl IMPRESSION: 1. Limited examination due to bowel gas. 2. No acute pelvic ultrasound abnormality
== END | disposition home or self-care (01) ==
LOC: RADUSWWP 13:25
PROVIDERS: ATTEND Obstetrics & Gynecology
DX: R10.2 Pelvic and perineal pain (principal); R68.89 Other general symptoms and signs
CPT/HCPCS: 76830; 76856

== ENCOUNTER → 2024-07-17 | Outpatient (CLI) | payer MEDICARE ==
[2024-07-17 11:38] VITALS: BP 124/60; PULSE 67; RESP 16; TEMP 97.1
--- NOTE | 2024-07-17 12:10 | P.HPOB ---
History of Present Illness H&P Date: 07/17/24 Chief Complaint: The patient is here for her routine gynecologic exam and ma mmogram. This is a 68-year-old -0-1-2 with an LMP of 2006. The patient is without gynecologic complaints. Review of Systems She has gained about 8 pounds over the past year. Respiratory: She continues to have chronic lung issues. She states there has been improvement after she removed carpets and had solid foam insulation put into her house. Cardiac: She is seeing Dr. Ahmadi, the geochemical laboratory technician, for episodes of tachycardia. She denies current tachycardia. GI: Unremarkable. Past Medical History Past Medical History: Asthma, CVA/TIA, GERD/Reflux, Hearing Disorder / Deafness, Hyperlipidemia, Osteoarthritis (OA), Skin Disorder, Thyroid Disorder Additional Past Medical History / Comment(s): Interstitial lung disease. Tracheobronchial malacia. 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 History of Any Multi-Drug Resistant Organisms: None Reported Past Surgical History: Breast Surgery, Cardiac Ablation, Heart Catheterization, Orthopedic Surgery, Tonsillectomy, Tubal Ligation Additional Past Surgical History / Comment(s): breast reduction, D&C, EGD, colonosopy, rt knee surgery. TITANIUM PLATE RT BIG TOE x1 - (surgery x2) .,cardiac ablations x2 Past Anesthesia/Blood Transfusion Reactions: Motion Sickness Additional Past Anesthesia/Blood Transfusion Reaction / Comment(s): has needed xopenex treatment after surgery in the past. Past Psychological History: Anxiety Additional Psychological History / Comment(s): PANIC ATTACK Smoking Status: Former smoker Past Alcohol Use History: Occasional (2 drinks per week.) Additional Past Alcohol Use History / Comment(s): STARTED SMOKING AT AGE 17 - QUIT MAR 1999 SMOKED 1 1/2PPD Past Drug Use History: None Reported Additional History: She has been a since 2019 and is not sexually active at this time. She is retired. She has been keeping busy researching [employer]. - Past Family History Mother Family Medical History: Cancer, Congestive Heart Failure (CHF) Additional Family Medical History / Comment(s): Breast cancer. She also has aunts, cousins and a grandmother had breast cancer. Father Family Medical History: Cancer Additional Family Medical History / Comment(s): Bladder and oral cancer. Medications and Allergies Home Medications Medication Instructions Recorded Confirmed Type ALPRAZolam [Xanax] 1.5 - 2 tab PO HS 10/14/14 07/11/23 History Aspirin 162 mg PO DAILY 10/14/14 07/11/23 History Flecainide [Tambocor] 50 mg PO Q12HR 10/14/14 07/11/23 History Glucosamine/Chondr Liu A Sod [Osteo 1 each PO BID 10/14/14 07/11/23 History Bi-Flex Caplet] Levothyroxine Sodium [Synthroid] 100 mcg PO DAILY 10/14/14 07/11/23 History Montelukast [Singulair] 10 mg PO DAILY 10/14/14 07/11/23 History Vitamin B Complex 1 each PO DAILY 10/14/14 07/11/23 History atenoloL [Tenormin] 25 mg PO HS 10/14/14 07/11/23 History Cyanocobalamin (Vitamin B-12) 1,000 mcg PO DAILY 10/17/17 07/11/23 History [Vitamin B-12] Levalbuterol Hfa Inhaler [Xopenex 2 puff INHALATION DIRECTED PRN 10/17/17 07/11/23 History Hfa Inhaler] Rosuvastatin Calcium [Crestor] 20 mg PO HS 10/17/17 07/11/23 History Chaparal Supplement 1,000 mg PO HS 12/22/17 07/11/23 History Monolaurin Supplement 990 mg PO DAILY 12/22/17 07/11/23 History Triamcinolone 0.1% Cream [Kenalog 1 applicatio TOPICAL BID PRN 12/22/17 07/11/23 History 0.1% Cream] Omeprazole [PriLOSEC] 40 mg PO DAILY 05/26/20 07/11/23 History L.acidoph,Paracasei, B.lactis 1 capsule DAILY 06/29/21 07/11/23 History [Probiotic] DULoxetine HCL [Cymbalta] 60 mg PO DAILY 07/05/22 07/11/23 History Fluticasone/Umeclidin/Vilanter 1 inhalation PO DAILY 07/05/22 07/11/23 History [Trelegy Ellipta 200-62.5-25] Benzonatate [Tessalon Perle] 200 mg PO TID 09/19/22 07/11/23 History Fluticasone Propionate [Flonase 1 spray EA NOSTRIL DAILY 09/19/22 07/11/23 History Allergy Relief] Tezepelumab-Ekko [Tezspire] 210 mg SQ Q30D 09/19/22 07/11/23 History Celecoxib [CeleBREX] 400 mg PO DAILY 09/21/22 07/11/23 History Ascorbic Acid [Vitamin C] 1,000 mg PO DAILY 10/24/22 07/11/23 History Cholecalciferol [Vitamin D3 (25 25 mcg PO DAILY 10/24/22 07/11/23 History Mcg = 1000 Iu)] Cider Vinegar [Apple Cider Vinegar] 3 tab PO PC-TID 10/24/22 07/11/23 History Losartan [Cozaar] 75 mg PO HS 10/24/22 07/11/23 History Lubricant Tears 1 drop BOTH EYES DIRECTED PRN 10/24/22 07/11/23 History Multivit-Min/Iron/Folic/Lutein 1 each PO DAILY 10/24/22 07/11/23 History [Centrum Silver Women Tablet] Cetirizine HCl [Zyrtec] 5 mg PO DAILY 07/11/23 07/11/23 History Allergies Allergy/AdvReac Type Severity Reaction Status Date / Time albuterol AdvReac Rapid Verified 07/17/24 11:28 Heart Rate azithromycin AdvReac told to Verified 07/17/24 11:28 [From Zithromax Z-Jair] never take with flecainide. stimulant medications Allergy Rapid Uncoded 07/17/24 11:28 Heart Rate Exam Vital Signs Temp Pulse Resp BP Pulse Ox 07/17/24 11:31 97.1 F L 67 16 124/60 94 L Intake and Output 07/16/24 07/17/24 07/17/24 22:59 06:59 14:59 Other: Weight 92.533 kg Height 5 feet 6 inches, weight 204 pounds, BMI 32.9. This is a well-developed well-nourished white female who is alert and oriented times 3 in no acute distress. HEENT: Within normal limits. NECK: Supple without mass or thyromegaly. CHEST AND LUNGS: There are no wheezes, but there is mild prolonged expiration consistent with her chronic lung disease. HEART: Regular rate and rhythm. BREASTS: Are without mass or discharge. AXILLARY EXAM: Negative for adenopathy. BACK: Negative for CVA tenderness. ABDOMEN: Soft, nontender, without palpable masses. PELVIC EXAM: Normal external genitalia with mild atrophy. Cervix and vagina appear normal with mild atrophy. There is no unusual discharge. There is no evidence of prolapse. The uterus is midposition, nongravid size and nontender. There are no palpable adnexal masses or tenderness. RECTAL EXAM: Rectovaginal exam is negative for mass or tenderness and is negative for occult blood. EXTREMITIES: Nontender. IMPRESSION: 1. 68-year-old menopausal female with normal gynecologic exam. 2. History of osteopenia 3. Multiple medical problems. PLAN: 1. Pap smears have been discontinued. 2. Self breast awareness was discussed with the patient. We have also discussed symptoms associated with inflammatory breast cancer. 3. Screening mammogram was done today. 4. Osteoporosis prevention was discussed. I have stressed the importance of adequate calcium, vitamin D and regular exercise. Recommended amounts of calcium and vitamin D were also discussed. Her last bone density test was more than 2 years ago. I have recommended repeating this and the order slip was given to the patient for this. 5. Colorectal cancer screening was discussed. She we will discuss with her PCP when her next colonoscopy is due. 6. She was advised to return in one year for her annual well woman exam.
--- NOTE | 2024-07-17 17:15 | MM ---
Reason for Exam: Screening (asymptomatic). Last mammogram was performed 1 year(s) and 1 month(s) ago. Patient History: Menarche at age 14. First Full-Term at age 24. Postmenopausal. Estrogen for 6 months from age 39 until age 38. Hormonal Contraceptives for 12 years from age 14 until age 28. 09/2009, Reduction. Maternal grandmother had breast cancer, age 70. Maternal cousin (latricia) had breast cancer, age 60. Maternal aunt (Jewels) had breast cancer, age 59. Maternal aunt (Daniel) had breast cancer, age 57. Maternal cousin had breast cancer, age 47. Mother had breast cancer, age 50. Risk Values: Kristin 5 year model risk: 3.2%. NCI Lifetime model risk: 10.8%. Prior Study Comparison: 06/29/2021 Bilateral Screening Mammogram, [facility]. 07/05/2022 Bilateral MG 3D screening mammo w/cad, [facility]. 07/11/2023 Bilateral MG 3D screening mammo w/cad, [facility]. Tissue Density: There are scattered areas of fibroglandular density. Findings: Analyzed By CAD. Benign bilateral oil cyst calcifications. There is no suspicious group of microcalcifications or new suspicious mass in either breast. Overall Assessment: Benign, BI-RAD 2 Management: Screening Mammogram of both breasts in 1 year. See note below in regards to the patient's increased 5 year Kristin score. Patient should continue monthly self-breast exams. A clinical breast exam by your physician is recommended on an annual basis. This exam should not preclude additional follow-up of suspicious palpable abnormalities. Note on Kristin scores and lifetime risk: 1. A Kristin score greater than 3% is considered moderate risk. If this is the case, consider specialist referral to assess eligibility for a risk reducing agent. 2. If overall lifetime risk for the development of breast cancer is 20% or higher, the patient may qualify for future screening with alternating mammogram and breast MRI. [facility], , 07/17/2024 5:12 PM. Electronically signed and approved by: Jhonny Burk M.D. Radiologist
== END | disposition home or self-care (01) ==
LOC: RADMAMWWP 10:56
PROVIDERS: ATTEND Obstetrics & Gynecology
DX: Z12.31 Encounter for screening mammogram for malignant neoplasm of breast (principal); R92.323 Mammographic fibroglandular density, bilateral breasts; Z78.0 Asymptomatic menopausal state; Z80.3 Family history of malignant neoplasm of breast
CPT/HCPCS: 77063; 77067

== ENCOUNTER 2024-09-03 09:04 | Day surgery (SDC) | payer MEDICARE ==
[2024-09-03] MEDS: IV FLUID CONTINUATION 1,000 ML IV ONE (09:31)
[2024-09-03] MEDS: SODIUM CHLORIDE 0.9% 1,000 ML IV SCH (09:46)
[2024-09-03 09:53] LABS: Basophils # (A) 0.02 10*3/uL (0.00-0.10); Basophils % (A) 0.3 %; Eosinophils # (A) 0.04 10*3/uL (0.04-0.35); Eosinophils % (A) 0.6 %; HCT 39.2 % (37.2-46.3); HGB 13.6 g/dL (12.0-15.0); Lymphocytes # (A) 1.43 10*3/uL (0.90-5.00); Lymphocytes % (A) 21.7 %; MCH 32.1 pg (27.0-32.0); MCHC 34.7 g/dL (32.0-37.0); MCV 92.5 fL (80.0-97.0); Mean Platelet Volume 9.4 fL (9.5-12.2); Monocytes # (A) 0.76 10*3/uL (0.20-1.00); Monocytes % (A) 11.5 %; Neutrophils # (A) 4.34 10*3/uL (1.80-7.70); Neutrophils % (A) 65.7 %; Platelet Count 279 10*3/uL (140-440); RBC 4.24 10*6/uL (4.10-5.20); RDW 12.1 % (11.5-14.5)
[2024-09-03] MEDS ORDERED: PHENYLEPHRINE-0.9% NACL SYG 1,000 MCG/10 ML SYRINGE ONE (10:56)
[2024-09-03] MEDS ORDERED: PROPOFOL 10 MG/ML 20 ML VIAL IV ONE (10:56)
[2024-09-03] MEDS ORDERED: fentaNYL (PF) 50 MCG/ML 2 ML AMP ONE (10:56)
[2024-09-03] MEDS ORDERED: SUCCINYLCHOLINE CHLORIDE 200 MG/10 ML VIAL IV ONE (10:56)
[2024-09-03] MEDS: HEPARIN SODIUM,PORCINE 10,000 UNIT in SODIUM CHLORIDE 0.9% 1,000 ML IRRIGATION ONE (10:56)
[2024-09-03] MEDS: HEPARIN SODIUM,PORCINE (1 ML) 2,500 UNIT in SODIUM CHLORIDE 0.9% 250 ML IRRIGATION ONE (10:56)
[2024-09-03] MEDS ORDERED: LIDOCAINE 1% INJ 10MG/ML (20 ML MDV) ONE (10:56)
[2024-09-03] MEDS ORDERED: ISOPROTERENOL 250 MCG/1.25 ML SYR IV ONE (10:56)
[2024-09-03] MEDS ORDERED: ePHEDrine 50 MG/ML 1 ML VIAL ONE (10:56)
[2024-09-03] MEDS ORDERED: ONDANSETRON 4 MG/2 ML VIAL ONE (10:56)
[2024-09-03] MEDS ORDERED: HEPARIN SODIUM,PORCINE 10,000 UNIT/ML 1 ML VIAL ONE (10:56)
[2024-09-03] MEDS: LIDOCAINE 1% INJ 10MG/ML (20 ML MDV) SQ ONE (11:29)
[2024-09-03] MEDS: HEPARIN SOD,PORK IN 0.45% NACL 25,000 UNIT in 0.45% NACL 1 250ML.BAG IV ONE (11:33)
[2024-09-03] MEDS: IOPAMIDOL-370 100ML BTL INJ ONE (12:58)
[2024-09-03] MEDS: LACTATED RINGERS 1,000 ML IV ONE (12:59)
[2024-09-03] MEDS: HYDROmorphone 0.5 MG/0.5 ML SYRINGE IVP STA (13:44)
[2024-09-03] MEDS ORDERED: LEVALBUTEROL INHALATION PRN (13:45)
[2024-09-03] MEDS: ACETAMINOPHEN IV (For NPO) 1,000 MG in EMPTY BAG 1 BAG IVPB ONE (14:00)
--- NOTE | 2024-09-03 14:11 | P.HPCAR ---
History of Present Illness This is Dr. Yi dictating an H/P on this patient The patient was interviewed and examined IMPRESSION / ASSESSMENT: Paroxysmal atrial fibrillation Feeling flecainide Mild first-degree AV block with incomplete right bundle branch block Mitral prolapse with moderate mitral regurgitation PLAN: A-fib ablation Heparin dose calculated Continue Rex Major vas score is 1 HPI Patient has episodes of palpitations despite flecainide. She had a breakthrough episode of atrial tachycardia/A-fib and needed extra flecainide doses No recent respiratory infection Denies any chest pain syncope or undue shortness of breath ROS: No fever chills or rigors, no cough, phlegm or expectoration, no nausea, vomiting or diarrhea, no hematuria, dysuria, no musculoskeletal complaints, no strokes or seizures, no skin lesions. EXAMINATION: Blood pressure 140/67 mmHg pulse rate in the 80s afebrile Breath sounds are clear no rhonchi no crackles Normal heart sounds No JVD No lower extremity edema REVIEW OF LABS, ECG & MEDICAL DATA White count 6.6, hemoglobin 13.6, platelet count 279,000, all normal Normal TSH of 3.1 Physical Exam Vitals: Vital Signs Temp Pulse Pulse Resp BP BP Pulse Ox 09/03/24 13:45 80 16 140/67 99 09/03/24 13:31 97.6 F 79 16 141/66 98 09/03/24 09:46 98.4 F 64 16 149/67 144/67 93 L Intake and Output 09/02/24 09/03/24 09/03/24 22:59 06:59 14:59 Intake Total 1075 Balance 1075 Intake: IV 1075 Other: Weight 92.3 kg Past Medical History Past Medical History: Asthma, CVA/TIA, GERD/Reflux, Hearing Disorder / Deafness, Hyperlipidemia, Osteoarthritis (OA), Skin Disorder, Thyroid Disorder Additional Past Medical History / Comment(s): Interstitial lung disease vs. p neumonia scarring. Tracheobronchial malacia. hx of mycoplasma pneumoniae, atrial tachycardia, lyme disease diagnosed december 2012 (bit december 2011), degenerative disk disease, cameron's esphagus, hx of Kurtis Heard, mitral valve prolapse, back & right hip pain, TIA/heat stroke? 10/2021, torn menisicus left knee., cataract left eye., hx of cortisone injections, hypoglycemia , see Dr. Yi's H & P History of Any Multi-Drug Resistant Organisms: None Reported Past Surgical History: Breast Surgery, Cardiac Ablation, Heart Catheterization, Orthopedic Surgery, Tonsillectomy, Tubal Ligation Additional Past Surgical History / Comment(s): breast reduction, D&C, EGD, colonosopy, rt knee surgery. titaniun, plate Rt. great toe x1,cardiac ablations x2, Lt. knee arthroscopy 07/2023 Past Anesthesia/Blood Transfusion Reactions: Motion Sickness Additional Past Anesthesia/Blood Transfusion Reaction / Comment(s): has needed xopenex treatment after surgery in the past x 1, tracheobronchial malacia Smoking Status: Former smoker - Past Family History Mother Family Medical History: Cancer, Congestive Heart Failure (CHF) Additional Family Medical History / Comment(s): Breast cancer. She also has aunts, cousins and a grandmother had breast cancer. Father Family Medical History: Cancer Additional Family Medical History / Comment(s): Bladder and oral cancer. Physical Examination Vital Signs Temp Pulse Pulse Resp BP BP Pulse Ox 09/03/24 13:45 80 16 140/67 99 09/03/24 13:31 97.6 F 79 16 141/66 98 09/03/24 09:46 98.4 F 64 16 149/67 144/67 93 L Intake and Output 09/02/24 09/03/24 09/03/24 22:59 06:59 14:59 Intake Total 1075 Balance 1075 Intake: IV 1075 Other: Weight 92.3 kg Results 09/03/24 09:45 CBC 09/03/24 Range/Units 09:45 WBC 6.60 (4.50-10.00) 10*3/uL RBC 4.24 (4.10-5.20) 10*6/uL Hgb 13.6 (12.0-15.0) g/dL Hct 39.2 (37.2-46.3) % Plt Count 279 (140-440) 10*3/uL Current Medications Generic Name Dose Route Start Last Admin Trade Name Freq PRN Reason Stop Dose Admin Acetaminophen 650 mg 09/03/24 13:44 Acetaminophen Tab 325 Mg Tab PO Q6HR PRN Mild Pain (Scale 1 to 3) Apixaban 5 mg 09/03/24 21:00 Apixaban 5 Mg Tab PO BID ALESSIO Protocol Atenolol 25 mg 09/03/24 21:00 Atenolol 25 Mg Tab PO BID [facility] Cyclosporine 2 drops 09/03/24 21:00 Cyclosporine 0.05% Ophth 0.4 Ml Droperette BOTH EYES BID PRN DRY EYES Duloxetine HCl 60 mg 09/04/24 09:00 Duloxetine Hcl 60 Mg Capsule.Dr PO DAILY [facility] Flecainide Acetate 50 mg 09/03/24 21:00 Flecainide 50 Mg Tab PO Q12HR [facility] Sodium Chloride 1,000 mls @ 20 mls/hr 09/03/24 06:07 09/03/24 09:46 Saline 0.9% IV 10/03/24 06:06 20 mls/hr .Q24H [facility] Administration Levothyroxine Sodium 100 mcg 09/04/24 06:30 Levothyroxine 100 Mcg Tab PO 0630 [facility] Losartan Potassium 50 mg 09/03/24 21:00 Losartan 50 Mg Tab PO BID [facility] Meloxicam 7.5 mg 09/03/24 21:00 Meloxicam 7.5 Mg Tab PO BID [facility] Montelukast Sodium 10 mg 09/04/24 09:00 Montelukast 10 Mg Tab PO DAILY [facility] Patient's Own ( 2 puff 09/03/24 13:45 Levalbuterol Hfa INHALATION Inhaler 200 Puff/9 DIRECTED PRN Gm Inhaler) Shortness Of Breath Sodium Chloride 12 ml 09/03/24 13:44 Sodium Chloride 0.9% Flush 10 Ml Syringe IV Q12HR PRN Line Flush Intake and Output 09/02/24 09/03/24 09/03/24 22:59 06:59 14:59 Intake Total 1075 Balance 1075 Intake: IV 1075 Other: Weight 92.3 kg Patient Weight 09/04/24 06:59 Weight 92.3 kg 09/03/24 09:45
--- NOTE | 2024-09-03 14:15 | P.EPPROC ---
- EP Procedure Note Electrophysiology Procedure Note: PROCEDURE A. fib ablation with PVI and left atrial septal ablation DIAGNOSIS Paroxysmal atrial fibrillation, symptomatic, refractory to therapy with flecainide RESULT No left atrial appendage mass seen on intracardiac echo Successful A. fib ablation/pulmonary vein isolation of all veins using cryo- ablation Complete entrance block in all 4 veins confirmed Left atrial septal ablation No evidence for phrenic nerve injury Esophageal deflection YES PROCEDURE DETAILS Written informed consent prior to procedure. Patient brought to the EP lab. General anesthesia given. Heparin administered. A city maintained above 300 seconds Both groins prepped and draped per protocol and venous sheaths placed. Esophagus intubated, circa catheter for temperature monitoring an endoscope for possible esophageal deflection. Phrenic nerve monitoring performed. Esophageal temperature monitoring pe rformed. Esophageal deflection performed if circa catheter overlapping with the balloon or circa temperature less than 27.5°C Intracardiac echocardiography performed. Pericardium evaluated. Left atrial appendage evaluated. Left atrium evaluated along with pulmonary veins Transseptal catheterization performed under fluoroscopic guidance and intracardiac echo guidance Cryoablation sheath exchanged, balloon catheter along with achieve catheter placed in the left atrium. Pulmonary veins isolated in the following sequence: Left superior pulmonary vein followed by left inferior pulmonary vein, followed by right inferior pulmonary vein and lastly right superior pulmonary vein. Phrenic nerve stimulation along with capture thresholds within the SVC and right superior pulmonary vein to identify the phrenic nerve proximity to the cryo- balloon. Pulmonary veins isolated and confirmed with entrance and exit block. Phrenic nerve integrity confirmed at the end of the procedure Ablation of the left atrial septum performed with cannulation of the inferior branch of the right superior vein to achieve ablation of the posterior septum of the left atrium. Ablation of electrograms confirmed Diagnostic catheters for the high right atrium, His bundle, coronary sinus placed. LA and RA pressures recorded LA pressure: Diagnostic EP study with coronary sinus pacing and recording Baseline measurements: Sinus cycle length 172 ms, VA interval 178 ms, QRS 116 and QT interval 510 ms AH 140 ms and HV interval 45 ms AV node Wenckebach block 340 ms During pacing patient's blood pressure would drop repeatedly Later high-dose Isopril was employed to induce any atrial tachycardia or atrial fibrillation. Mild dip in blood pressure even on high-dose Isopril No arrhythmias induced Venous sheaths were removed and hemostasis assured with a closure device. Patient extubated and transferred to recovery PROCEDURES PERFORMED Diagnostic EP study CS pacing and recording Left and right transseptal catheterization Catheter the mapping of the tachycardia Intracardiac echocardiography Pulmonary vein isolation with transseptal and comprehensive EPS, [id number] Drug infusion, +[id number] Linear ablation, left atrium, +[id number]
[2024-09-03] MEDS: BENZONATATE 100 MG CAP PO SCH (15:29)
[2024-09-03] MEDS: atenoloL 25 MG TAB PO SCH (20:36)
[2024-09-03] MEDS: MELOXICAM 7.5 MG TAB PO SCH (20:36)
[2024-09-03] MEDS: LORATADINE 10 MG TAB PO SCH (20:36)
[2024-09-03] MEDS: LOSARTAN 50 MG TAB PO SCH (20:36)
[2024-09-03] MEDS: FLECAINIDE 50 MG TAB PO SCH (20:36)
[2024-09-03] MEDS: APIXABAN 5 MG TAB PO SCH (20:36)
[2024-09-03] MEDS: ACETAMINOPHEN TAB 325 MG TAB PO PRN (20:37)
[2024-09-03] MEDS ORDERED: cycloSPORINE 0.05% OPHTH 0.4 ML DROPERETTE BOTH EYES PRN (21:00)
[2024-09-03] MEDS ORDERED: ALPRAZolam 1 MG TAB PO PRN (21:37)
[2024-09-04 03:30] VITALS: RESP 16
[2024-09-04 07:34] VITALS: BP 148/71; PULSE 74; TEMP 98.2
--- NOTE | 2024-09-04 08:25 | DS ---
DISCHARGE SUMMARY Tosin Brunner is a 69-year-old female with paroxysmal atrial fibrillation/PAT for many years, who was experiencing breakthrough episodes on flecainide. The dose of flecainide was increased to 75 mg twice daily. Her DC was mildly prolonged. She has underlying mild sick sinus syndrome with AV tab disease. Yesterday, she underwent atrial fibrillation ablation successfully. Following that Isuprel was used to induce any arrhythmias. No arrhythmias could be induced on high- dose Isuprel. She is doing well this morning. Her heart sounds are normal. Blood pressure is normal. Groins have healed well. IMPRESSION: Paroxysmal atrial fibrillation, status post atrial fibrillation ablation. PLAN: Continue Eliquis. Reduce the dose of flecainide to 50 mg twice daily. I explained to the patient that I do feel a fluttering and palpitations for the first month or even have atrial fibrillation the first month as part of the healing process. We will see her again in about a week in the office. Groin precautions were explained. MMODL / IJN: [id number] /
[2024-09-04] MEDS: MONTELUKAST 10 MG TAB PO SCH (09:29)
[2024-09-04] MEDS: DULoxetine HCL 60 MG CAPSULE.DR PO SCH (09:30)
[2024-09-04] MEDS: LEVOTHYROXINE 100 MCG TAB PO SCH (09:35)
== END 2024-09-04 10:14 | disposition home or self-care (01) ==
LOC: CATHEP 09:04 → 6NMEDSUR 13:16 → CATHEP 09-04 10:14
PROVIDERS: ATTEND Internal Medicine Clinical Cardiac Electrophysiology
DX: I48.0 Paroxysmal atrial fibrillation (principal); I44.0 Atrioventricular block, first degree; I45.10 Unspecified right bundle-branch block; I34.0 Nonrheumatic mitral (valve) insufficiency; I47.19 Other supraventricular tachycardia; J45.909 Unspecified asthma, uncomplicated; E78.5 Hyperlipidemia, unspecified; M19.90 Unspecified osteoarthritis, unspecified site; Z87.891 Personal history of nicotine dependence; Z98.51 Tubal ligation status; Z90.89 Acquired absence of other organs; Z86.73 Personal history of transient ischemic attack (TIA), and cerebral infarction without residual deficits; Z82.49 Family history of ischemic heart disease and other diseases of the circulatory system; Z80.3 Family history of malignant neoplasm of breast; Z88.8 Allergy status to other drugs, medicaments and biological substances; Z79.890 Hormone replacement therapy; Z79.01 Long term (current) use of anticoagulants; Z79.899 Other long term (current) drug therapy
CPT/HCPCS: 93623; 93656; 93657; 86900; 86901; 84443; 85025; 86850; C1894; C1769; C1760 ×2; C1730 ×2; C1759; C1733; C1766; J1644 ×3; J2003; J0131; J1171; Q9967